=== PATIENT | male | born 1975 | race Caucasian/White ===

== ENCOUNTER 2018-08-12 19:18 | Emergency (ER) | payer BC, SELFPAY ==
--- NOTE | 2018-08-12 20:41 | RAD REPORT ---
EXAM DESCRIPTION: Norris Sarkar (2 Views)08/12/2018 8:31 pm CLINICAL HISTORY: Cough COMPARISON: September 2016 FINDINGS: The lungs appear clear of acute infiltrate. The heart is normal size IMPRESSION: No acute abnormalities displayed
[2018-08-12 21:06] LABS: Absolute Monocytes 1.1 K/uL (0.1-1.3); Basophils % 1.2 % (0-1.3); Eosinophils % 1.2 % (0-4.4); Hematocrit 41.5 % (39.6-49.0); Lymphocytes % 22.3 % (15.3-44.8); MPV 7.6 fL (7.6-11.3); Monocytes % 7.9 % (3.3-12.3); RBC Red Blood Cell Count 4.74 M/uL (4.33-5.43)
[2018-08-12 21:18] LABS: Potassium 3.7 mmol/L (3.5-5.1)
--- NOTE | 2018-08-12 21:45 | EDPHYS ---
Physician Documentation [facility] Name: Christiano Johns Age: 42 yrs Sex: Male : 1975 Arrival Date: 08/12/2018 Time: 19:19 Bed 7 Private MD: ED Physician Dennis Ochoa HPI: 08/12 20:42 This 42 yrs old Male presents to ER via Ambulatory with complaints of Cough, pkl Congestion, Back Pain. 20:42 The patient or guardian reports cough, with productive sputum, that is white. Onset: pkl The symptoms/episode began/occurred 1 week(s) ago. Associated signs and symptoms: Pertinent positives: chest pain, earache, rhinorrhea, upper back pain. Historical: - Allergies: 19:51 PENICILLINS; lp1 - Home Meds: 19:51 metformin 1,000 mg Oral tab 1 tab 2 times per day [Active]; lp1 - PMHx: 19:51 GALLSTONES; Gout; Sleep Apnea; Diabetes - NIDDM; lp1 - PSHx: 19:51 Cholecystectomy; lp1 - Immunization history:: Adult Immunizations up to date, Flu vaccine is not up to date. - Social history:: Smoking status: Patient uses tobacco products, smokes one pack cigarettes per day. - Ebola Screening: : No symptoms or risks identified at this time. ROS: 20:42 Eyes: Negative for injury, pain, redness, and discharge, ENT: Negative for injury, pkl pain, and discharge, Neck: Negative for injury, pain, and swelling, Cardiovascular: Negative for chest pain, palpitations, and edema. 20:42 Respiratory: Positive for cough, with white sputum. 20:42 Abdomen/GI: Negative for abdominal pain, nausea, vomiting, and diarrhea. 20:42 Back: Positive for pain at rest, of the upper back. 20:42 : Negative for urinary symptoms. 20:42 MS/extremity: Negative for acute changes. 20:42 Skin: Negative for rash. 20:42 Neuro: Negative for altered mental status. Exam: 20:42 Head/Face: Normocephalic, atraumatic. Eyes: Pupils equal round and reactive to light, pkl extra-ocular motions intact. Lids and lashes normal. Conjunctiva and sclera are non-icteric and not injected. Cornea within normal limits. Periorbital areas with no swelling, redness, or edema. ENT: Nares patent. No nasal discharge, no septal abnormalities noted. Tympanic membranes are normal and external auditory canals are clear. Oropharynx with no redness, swelling, or masses, exudates, or evidence of obstruction, uvula midline. Mucous membranes moist. Neck: Trachea midline, no thyromegaly or masses palpated, and no cervical lymphadenopathy. Supple, full range of motion without nuchal rigidity, or vertebral point tenderness. No Meningismus. Chest/axilla: Normal chest wall appearance and motion. Nontender with no deformity. No lesions are appreciated. Cardiovascular: Regular rate and rhythm with a normal S1 and S2. No gallops, murmurs, or rubs. Normal PMI, no JVD. No pulse deficits. Respiratory: Lungs have equal breath sounds bilaterally, clear to auscultation and percussion. No rales, rhonchi or wheezes noted. No increased work of breathing, no retractions or nasal flaring. Abdomen/GI: Soft, non-tender, with normal bowel sounds. No distension or tympany. No guarding or rebound. No evidence of tenderness throughout. Back: No spinal tenderness. No costovertebral tenderness. Full range of motion. Skin: Warm, dry with normal turgor. Normal color with no rashes, no lesions, and no evidence of cellulitis. MS/ Extremity: Pulses equal, no cyanosis. Neurovascular intact. Full, normal range of motion. Neuro: Awake and alert, GCS 15, oriented to person, place, time, and situation. Cranial nerves II-XII grossly intact. Motor strength 5/5 in all extremities. Sensory grossly intact. Cerebellar exam normal. Normal gait. Vital Signs: 19:49 BP 126 / 78; Pulse 96; Resp 18; Temp 99.8(O); Pulse Ox 98% on R/A; Weight 96.62 kg (R); lp1 Height 5 ft. 11 in. (180.34 cm); Pain 9/10; 21:43 BP 123 / 80; Pulse 87; Resp 18; Temp 98.4(O); Pulse Ox 96% on R/A; tl2 19:49 Body Mass Index 29.71 (96.62 kg, 180.34 cm) lp1 MDM: 20:35 Patient medically screened. pkl 21:43 Data reviewed: vital signs, nurses notes, lab test result(s), radiologic studies, plain pkl films. 08/12 19:51 Order name: Flu 1 08/12 19:52 Order name: Influenza Screen (A ; Complete Time: 20:36 EDNV 08/12 19:51 Order name: Chest Pa And Lat (2 Views) XRAY; Complete Time: 21:14 lp1 08/12 20:42 Order name: CBC with Diff; Complete Time: 21:14 pkl 08/12 20:42 Order name: Chem 7; Complete Time: 21:42 pkl Administered Medications: No medications were administered Disposition: 08/12/18 21:45 Discharged to Home. Impression: Bronchitis. Diabetes. Leukocytosis. - Condition is Stable. - Prescriptions for Zithromax Z- Karlos 250 mg Oral Tablet - take 1 tablet by ORAL route as directed for 5 days Day 1 - take two (2) tablets one time. Day 2, 3, 4 , 5 take one (1) tablet once daily.; 6 tablet. Guaifenesin AC 10- 100 mg/5 mL Oral Liquid - take 10 milliliters by ORAL route every 8 hours As needed; 120 milliliter. - Work release form, Medication Reconciliation Form, Thank You Letter, Antibiotic Education, Prescription Opioid Use form. - Follow up: Private Physician; When: 2 - 3 days; Reason: Re-evaluation by your physician. - Problem is new. - Symptoms are unchanged. Signatures: Dispatcher [employer] [facility] Dennis Ochoa MD MD pkl Alisa Beltran RN RN lp1 Autumn Porter RN RN tl2 Corrections: (The following items were deleted from the chart) 21:56 21:45 08/12/2018 21:45 Discharged to Home. Impression: Bronchitis. Diabetes. tl2 Leukocytosis. Condition is Stable. Forms are Medication Reconciliation Form, Thank You Letter, Antibiotic Education, Prescription Opioid Use. Follow up: Private Physician; When: 2 - 3 days; Reason: Re-evaluation by your physician. Problem is new. Symptoms are unchanged. pkl
--- NOTE | 2018-08-12 21:45 | ER ---
Nurse's Notes [facility] Name: Christiano Johns Age: 42 yrs Sex: Male : 1975 Arrival Date: 08/12/2018 Time: 19:19 Bed 7 Private MD: Diagnosis: Bronchitis. Diabetes. Leukocytosis Presentation: 08/12 19:47 Presenting complaint: Patient states: Been feeling sick for a few days with cough, lp1 congestion; States coughing is aggravating his herniated discs in his back; States have fever, chills at home, sore throat. Transition of care: patient was not received from another setting of care. Onset of symptoms was August 12, 2018. Risk Assessment: Do you want to hurt yourself or someone else? Patient reports no desire to harm self or others. Initial Sepsis Screen: Does the patient meet any 2 criteria? No. Patient's initial sepsis screen is negative. Does the patient have a suspected source of infection? No. Patient's initial sepsis screen is negative. Care prior to arrival: None. 19:47 Method Of Arrival: Ambulatory lp1 19:47 Acuity: TRAVIS 3 lp1 Triage Assessment: 21:00 General: Behavior is calm, cooperative, appropriate for age. tl2 Historical: - Allergies: 19:51 PENICILLINS; lp1 - Home Meds: 19:51 metformin 1,000 mg Oral tab 1 tab 2 times per day [Active]; lp1 - PMHx: 19:51 GALLSTONES; Gout; Sleep Apnea; Diabetes - NIDDM; lp1 - PSHx: 19:51 Cholecystectomy; lp1 - Immunization history:: Adult Immunizations up to date, Flu vaccine is not up to date. - Social history:: Smoking status: Patient uses tobacco products, smokes one pack cigarettes per day. - Ebola Screening: : No symptoms or risks identified at this time. Screenin:51 Abuse screen: Denies threats or abuse. Denies injuries from another. Nutritional lp1 screening: No deficits noted. Tuberculosis screening: No symptoms or risk factors identified. Fall Risk None identified. Assessment: 21:00 General: Appears in no apparent distress. uncomfortable. Pain: Complains of pain in tl2 back. Neuro: Level of Consciousness is awake, alert, obeys commands, Oriented to person, place, time, situation. Cardiovascular: Denies chest pain, Patient's skin is warm and dry. Respiratory: Reports cough that is Airway is patent Respiratory effort is even, unlabored, Respiratory pattern is regular, symmetrical, Breath sounds are clear bilaterally. GI: No signs and/or symptoms were reported involving the gastrointestinal system. : No signs and/or symptoms were reported regarding the genitourinary system. Derm: Skin is pink, warm \T\ dry. 21:45 Reassessment: Patient appears in no apparent distress at this time. Patient and/or tl2 family updated on plan of care and expected duration. Pain level reassessed. Patient is alert, oriented x 3, equal unlabored respirations, skin warm/dry/pink. 21:54 Reassessment: Patient appears in no apparent distress at this time. Patient and/or tl2 family updated on plan of care and expected duration. Pain level reassessed. Patient is alert, oriented x 3, equal unlabored respirations, skin warm/dry/pink. pt verbalized understanding of discharge instructions, need for follow up and prescription usage. Vital Signs: 19:49 BP 126 / 78; Pulse 96; Resp 18; Temp 99.8(O); Pulse Ox 98% on R/A; Weight 96.62 kg (R); lp1 Height 5 ft. 11 in. (180.34 cm); Pain 9/10; 21:43 BP 123 / 80; Pulse 87; Resp 18; Temp 98.4(O); Pulse Ox 96% on R/A; tl2 19:49 Body Mass Index 29.71 (96.62 kg, 180.34 cm) lp1 ED Course: 19:19 Patient arrived in ED. am2 19:49 Triage completed. lp1 19:49 Arm band placed on left wrist. lp1 19:55 Flu and/or RSV swab sent to lab. lp1 20:31 Chest Pa And Lat (2 Views) XRAY In Process Unspecified. EDMS 20:33 X-ray completed. Patient tolerated procedure well. Patient moved back from radiology. ml 20:35 Dennis Ochoa MD is Attending Physician. pkl 20:45 Autumn Porter RN is Primary Nurse. tl2 20:54 Inserted saline lock: 22 gauge in left wrist, using aseptic technique. Blood collected. tl2 21:45 Patient has correct armband on for positive identification. Bed in low position. Call tl2 light in reach. Side rails up X 1. Adult w/ patient. 21:54 No provider procedures requiring assistance completed. Patient did not have IV access tl2 during this emergency room visit. Administered Medications: No medications were administered Outcome: 21:45 Discharge ordered by . paramjit 21:54 Discharged to home ambulatory, with family. tl2 21:54 Condition: stable 21:54 Discharge instructions given to patient, Instructed on discharge instructions, follow up and referral plans. medication usage, Demonstrated understanding of instructions, follow-up care, medications, Prescriptions given X 2. 21:56 Patient left the ED. tl2 Signatures: Dispatcher [employer] EDMS Dennis Ochoa MD MD pkl Lopez, Melissa ml Pena, Laura, RN RN lp1 Autumn Porter RN RN tl2 Marcela Rivera am2 Corrections: (The following items were deleted from the chart) 19:49 19:47 Acuity: TRAVIS 4 lp1 lp1
== END 2018-08-12 21:56 | disposition home or self-care (01) ==
LOC: ER 19:18
DX: J40 Bronchitis, not specified as acute or chronic (principal); D72.829 Elevated white blood cell count, unspecified; Z88.0 Allergy status to penicillin; E11.9 Type 2 diabetes mellitus without complications; M10.9 Gout, unspecified; Z79.84 Long term (current) use of oral hypoglycemic drugs; F17.210 Nicotine dependence, cigarettes, uncomplicated
CPT/HCPCS: 36415; 71046; 80048; 85025; 87804; 99284

== ENCOUNTER 2019-02-22 15:03 | Emergency (ER) | payer SELFPAY ==
[2019-02-22] MEDS ORDERED: MORPHINE 4 MG/ML SYR ONE (17:16)
[2019-02-22] MEDS ORDERED: KETOROLAC 30 MG/ML INJ ONE (17:16)
[2019-02-22] MEDS ORDERED: ONDANSETRON 4 MG (ODT) TAB ONE (17:16)
--- NOTE | 2019-02-22 18:03 | EDPHYS ---
Physician Documentation [facility] Name: Christiano Johns Age: 43 yrs Sex: Male : 1975 Arrival Date: 02/22/2019 Time: 15:04 Bed 12 Private MD: None, None ED Physician Chris Snell HPI: 02/22 17:17 This 43 yrs old Male presents to ER via Ambulatory with complaints of Back jmm Pain. 17:17 The patient presents with pain that is acute. Onset: The symptoms/episode jmm began/occurred acutely, yesterday. The pain radiates to the left leg. Associated signs and symptoms: Pertinent negatives: abdominal pain, dysuria, fever, hematuria, incontinence, nausea, numbness, weakness. This is a 43 year old male with a history of DM, chronic back pain that presents to the ED with complaints of lower back pain which radiates down his left leg. This occurred while lifting at work yesterday. Denies bowel or bladder issues. Denies weakness. . Historical: - Allergies: 15:16 PENICILLINS; aj1 - Home Meds: 15:16 metformin 1,000 mg Oral tab 1 tab 2 times per day [Active]; aj1 - PMHx: 15:16 Diabetes - NIDDM; GALLSTONES; Gout; Sleep Apnea; aj1 - Immunization history:: Flu vaccine is not up to date. - Social history:: Smoking status: Patient uses tobacco products, smokes one pack cigarettes per day. - Ebola Screening: : Patient denies travel to an Ebola-affected area in the 21 days before illness onset. ROS: 17:17 Constitutional: Negative for fever, chills, and weight loss, Cardiovascular: Negative jmm for chest pain, palpitations, and edema, Respiratory: Negative for shortness of breath, cough, wheezing, and pleuritic chest pain. 17:17 Back: Positive for pain at rest. 17:17 MS/extremity: Positive for pain. 17:17 All other systems are negative. Exam: 17:17 Constitutional: This is a well developed, well nourished patient who is awake, alert, jmm and in no acute distress. Head/Face: atraumatic. Eyes: EOMI, no conjunctival erythema appreciated ENT: Moist Mucus Membranes Neck: Trachea midline, Supple Chest/axilla: Normal chest wall appearance and motion. Cardiovascular: Regular rate and rhythm. No edema appreciated Respiratory: Normal respirations, no respiratory distress appreciated Abdomen/GI: Non distended, soft 17:17 Back: left lumbar pain on palpation, FROM, painful. 17:17 Musculoskeletal/extremity: ROM: intact in all extremities. 17:17 Neuro: Orientation: is normal, Mentation: is normal, Memory: is normal, Gait: is steady, extensor hallucis longus intact. 17:17 Psych: Behavior/mood is pleasant, cooperative. Vital Signs: 15:16 BP 121 / 86; Pulse 87; Resp 16; Temp 97.9; Pulse Ox 98% on R/A; Weight 90.72 kg (R); aj1 Height 5 ft. 11 in. (180.34 cm) (R); Pain 8/10; 15:16 Body Mass Index 27.89 (90.72 kg, 180.34 cm) aj1 MDM: 16:44 Patient medically screened. [facility] 18:01 Data reviewed: vital signs, nurses notes. Counseling: I had a detailed discussion with james the patient and/or guardian regarding: the historical points, exam findings, and any diagnostic results supporting the discharge/admit diagnosis, the need for outpatient follow up, to return to the emergency department if symptoms worsen or persist or if there are any questions or concerns that arise at home. ED course: Patient is alert and non toxic in appearance in the ED. I do not suspect cord compression or cauda equina. Patient advised to follow up with pcp and otherwise given strict return precautions. patient understood and agrees with the plan of care. . Administered Medications: 17:21 Drug: Ketorolac 30 mg Route: IM; Site: left deltoid; hb 17:21 Drug: morphine 4 mg Route: IM; Site: right deltoid; hb 17:21 Drug: Zofran 4 mg Route: PO; hb Disposition: 18:34 Co-signature as Attending Physician, Chris Snell MD. rn Disposition: 02/22/19 18:02 Discharged to Home. Impression: Sciatica, left side. - Condition is Stable. - Discharge Instructions: Sciatica. - Prescriptions for Zanaflex 4 mg Oral Tablet - take 1 tablet by ORAL route every 8 hours As needed; 20 tablet. Medrol (Karlos) 4 mg Oral Tablets, Dose Pack - take 1 tablet by ORAL route as directed - follow package instructions; 1 packet. - Medication Reconciliation Form, Thank You Letter, Antibiotic Education, Prescription Opioid Use, School release form form. - Follow up: Private Physician; When: 2 - 3 days; Reason: Recheck today's complaints, Continuance of care, Re-evaluation by your physician. Signatures: Tisha Hughes RN RN aj1 Yordan Estrada PA PA jmm Nieto, Roman, MD MD rn Baxter, Heather, RN RN hb Corrections: (The following items were deleted from the chart) 18:19 18:02 02/22/2019 18:02 Discharged to Home. Impression: Sciatica, left side. Condition hb is Stable. Forms are Medication Reconciliation Form, Thank You Letter, Antibiotic Education, Prescription Opioid Use. Follow up: Private Physician; When: 2 - 3 days; Reason: Recheck today's complaints, Continuance of care, Re-evaluation by your physician. james
--- NOTE | 2019-02-22 18:03 | ER ---
Nurse's Notes [facility] Name: Christiano Johns Age: 43 yrs Sex: Male : 1975 Arrival Date: 02/22/2019 Time: 15:04 Bed 12 Private MD: None, None Diagnosis: Sciatica, left side Presentation: 02/22 15:15 Presenting complaint: Patient states: "I hurt my back yesterday at work and now if I aj1 move it sends pain down my legs" Reports that he had a big box of mushroom and he lifted it to put in the cooler and suddenly he had back pain. Transition of care: patient was not received from another setting of care. Onset of symptoms was February 21, 2019. Risk Assessment: Do you want to hurt yourself or someone else? Patient reports no desire to harm self or others. Initial Sepsis Screen: Does the patient meet any 2 criteria? No. Patient's initial sepsis screen is negative. Does the patient have a suspected source of infection? No. Patient's initial sepsis screen is negative. Care prior to arrival: None. 15:15 Method Of Arrival: Ambulatory aj 15:15 Acuity: TRAVIS 4 aj1 Triage Assessment: 15:16 General: Appears in no apparent distress. uncomfortable, Behavior is calm, cooperative, aj1 appropriate for age. Pain: Complains of pain in back Pain currently is 8 out of 10 on a pain scale. Neuro: Level of Consciousness is awake, alert, obeys commands. Cardiovascular: Patient's skin is warm and dry. Respiratory: Airway is patent Respiratory effort is even, unlabored, Respiratory pattern is regular, symmetrical. Musculoskeletal: Range of motion: intact in all extremities. Historical: - Allergies: 15:16 PENICILLINS; aj1 - Home Meds: 15:16 metformin 1,000 mg Oral tab 1 tab 2 times per day [Active]; aj1 - PMHx: 15:16 Diabetes - NIDDM; GALLSTONES; Gout; Sleep Apnea; aj1 - Immunization history:: Flu vaccine is not up to date. - Social history:: Smoking status: Patient uses tobacco products, smokes one pack cigarettes per day. - Ebola Screening: : Patient denies travel to an Ebola-affected area in the 21 days before illness onset. Screenin:48 Abuse screen: Denies threats or abuse. Denies injuries from another. Nutritional hb screening: No deficits noted. Tuberculosis screening: No symptoms or risk factors identified. Fall Risk None identified. Assessment: 16:49 General: Appears in no apparent distress. Behavior is calm, cooperative. Pain: Pain hb currently is 8 out of 10 on a pain scale. Neuro: Level of Consciousness is awake, alert, obeys commands, Oriented to person, place, time, situation. Cardiovascular: Capillary refill < 3 seconds Patient's skin is warm and dry. Respiratory: Airway is patent Respiratory effort is even, unlabored, Respiratory pattern is regular, symmetrical. GI: No signs and/or symptoms were reported involving the gastrointestinal system. : No signs and/or symptoms were reported regarding the genitourinary system. EENT: No signs and/or symptoms were reported regarding the EENT system. Derm: Skin is pink, warm \\T\\ dry. Musculoskeletal: Reports back pain. 17:45 Reassessment: Patient appears in no apparent distress at this time. Patient and/or hb family updated on plan of care and expected duration. Pain level reassessed. Patient is alert, oriented x 3, equal unlabored respirations, skin warm/dry/pink. Vital Signs: 15:16 BP 121 / 86; Pulse 87; Resp 16; Temp 97.9; Pulse Ox 98% on R/A; Weight 90.72 kg (R); aj1 Height 5 ft. 11 in. (180.34 cm) (R); Pain 8/10; 15:16 Body Mass Index 27.89 (90.72 kg, 180.34 cm) aj1 ED Course: 15:04 Patient arrived in ED. ag5 15:05 None, None is Private Physician. ag5 15:16 Triage completed. aj1 15:16 Arm band placed on Patient placed in waiting room, Patient notified of wait time. aj1 16:44 Yordan Estrada PA is PHCP. [facility] 16:44 Chris Snell MD is Attending Physician. [facility] 16:45 Cecilia Diaz, PATRICIO is Primary Nurse. hb 16:48 Patient has correct armband on for positive identification. Call light in reach. hb 17:45 No provider procedures requiring assistance completed. Patient did not have IV access hb during this emergency room visit. Administered Medications: 17:21 Drug: Ketorolac 30 mg Route: IM; Site: left deltoid; 17:21 Drug: morphine 4 mg Route: IM; Site: right deltoid; 17:21 Drug: Zofran 4 mg Route: PO; hb Outcome: 17:45 Discharged to home ambulatory, with family. hb 17:45 Condition: stable 17:45 Discharge instructions given to patient, family, Instructed on discharge instructions, follow up and referral plans. medication usage, Demonstrated understanding of instructions, follow-up care, medications, Prescriptions given X 2. 18:02 Discharge ordered by . james 18:19 Patient left the ED. Signatures: Tisha Hughes, RN RN aj1 Yordan Estrada PA PA jmm Baxter, Heather, RN RN hb Gaskin, Ajare ag5
== END 2019-02-22 18:19 | disposition home or self-care (01) ==
LOC: ER 15:03
DX: M54.32 Sciatica, left side (principal); Z88.0 Allergy status to penicillin; E11.9 Type 2 diabetes mellitus without complications; F17.210 Nicotine dependence, cigarettes, uncomplicated
CPT/HCPCS: 96372; 99283

== ENCOUNTER 2020-02-09 16:52 | Emergency (ER) | payer SELFPAY ==
[2020-02-09] MEDS ORDERED: IBUPROFEN 400 MG TAB ONE ×2 (18:59→19:00)
[2020-02-09] MEDS ORDERED: HYDROCODONE/APAP 7.5/325 MG TAB ONE (18:59)
--- NOTE | 2020-02-09 19:20 | RAD REPORT ---
EXAM DESCRIPTION: RAD - Scapula Left - 02/09/2020 7:04 pm CLINICAL HISTORY: fall;Pain COMPARISON: Shoulder Left 2 View dated 02/09/2020 FINDINGS: No fracture or dislocation is identified.
--- NOTE | 2020-02-09 19:20 | RAD REPORT ---
EXAM DESCRIPTION: RAD - Shoulder Left 2 View - 02/09/2020 7:05 pm CLINICAL HISTORY: PAIN Fall, left shoulder pain COMPARISON: Shoulder Left 2 View dated 01/30/2016; Scapula Left dated 02/09/2020 FINDINGS: Mild AC joint and glenohumeral joint arthritic changes are present. No acute fracture or d islocation identified.
--- NOTE | 2020-02-09 19:34 | EDPHYS ---
Physician Documentation [facility] Name: Christiano Johns Age: 44 yrs Sex: Male : 1975 Arrival Date: 02/09/2020 Time: 16:53 Bed 23 Private MD: ED Physician Chris Snell HPI: 02/08 18:35 This 44 yrs old Male presents to ER via Ambulatory with complaints of Fall cp Injury, Shoulder Pain. 18:35 Details of fall: The patient fell from an upright position, while walking. Onset: The cp symptoms/episode began/occurred today. Associated injuries: The patient sustained left shoulder. Historical: - Allergies: 17:53 PENICILLINS; em - PMHx: 17:53 Diabetes - NIDDM; Gout; GALLSTONES; Sleep Apnea; em - PSHx: 17:53 Cholecystectomy; em - Immunization history:: Adult Immunizations up to date. - Social history:: Smoking status: Patient reports the use of cigarette tobacco products, smokes one pack cigarettes per day. ROS: 18:40 MS/extremity: Positive for decreased range of motion, pain, tenderness, of the left cp shoulder, Negative for paresthesias. 18:40 Constitutional: Negative for body aches, chills, fever. cp 18:40 Neck: Negative for pain with movement, pain at rest, stiffness. 18:40 Cardiovascular: Negative for chest pain. 18:40 Respiratory: Negative for cough, shortness of breath, wheezing. 18:40 Abdomen/GI: Negative for abdominal pain, nausea, vomiting, and diarrhea. 18:40 Back: Negative for pain at rest, pain with movement, radiated pain. 18:40 Neuro: Negative for headache, loss of consciousness, syncope, weakness. 18:40 All other systems are negative. Exam: 18:45 Constitutional: The patient appears in no acute distress, alert, awake, well developed, cp well nourished, uncomfortable. 18:45 Head/Face: Normocephalic, atraumatic. cp 18:45 Eyes: Periorbital structures: appear normal, Pupils: equal, round, and reactive to cp light and accomodation, Extraocular movements: intact throughout, Sclera: no appreciated abnormality, Lids and lashes: appear normal, bilaterally. 18:45 ENT: External ear(s): are unremarkable, Nose: is normal, Mouth: Lips: moist, Oral mucosa: moist, Posterior pharynx: Airway: no evidence of obstruction, patent. 18:45 Neck: C-spine: vertebral tenderness, is not appreciated, crepitus, is not appreciated, ROM/movement: is normal, is supple, without pain, no range of motions limitations. 18:45 Chest/axilla: Inspection: normal, Palpation: is normal, no crepitus, no tenderness. 18:45 Cardiovascular: Rate: normal, Rhythm: regular, Pulses: Pulses are 2+ in right radial artery and left radial artery. Edema: is not appreciated. 18:45 Respiratory: the patient does not display signs of respiratory distress, Respirations: normal, no use of accessory muscles, no retractions, labored breathing, is not present, Breath sounds: are clear throughout, no decreased breath sounds. 18:45 Abdomen/GI: Inspection: abdomen appears normal, Palpation: abdomen is soft and non-tender, in all quadrants. 18:45 Back: vertebral tenderness, is not appreciated. 18:45 Musculoskeletal/extremity: ROM: limited passive range of motion due to pain, in the left shoulder, Perfusion: the extremity is normally perfused throughout, Sensation intact. Joints: All joints are normal except the left shoulder displays limited range of motion, painful range of motion, tenderness. 18:45 Neuro: Orientation: to person, place \T\ time. Mentation: is normal. cp Vital Signs: 17:50 BP 146 / 99; Pulse 99; Resp 18; Temp 98.4; Pulse Ox 99% on R/A; Weight 86.18 kg; Height em 5 ft. 11 in. (180.34 cm); Pain 5/10; 17:50 Body Mass Index 26.50 (86.18 kg, 180.34 cm) em Procedures: 20:00 Splinting: Splint applied to left shoulder using sling, applied by tech. Examined by cp me, post splint application: neurovascular intact, Patient tolerated well. MDM: 18:30 Patient medically screened. cp 18:45 Differential diagnosis: contusion, fracture, AC joint separation, dislocation. cp 19:33 Data reviewed: vital signs, nurses notes, radiologic studies, plain films, and as a cp result, I will discharge patient. 19:33 Counseling: I had a detailed discussion with the patient and/or guardian regarding: the cp historical points, exam findings, and any diagnostic results supporting the discharge/admit diagnosis, radiology results, the need for outpatient follow up, a orthopedic surgeon, to return to the emergency department if symptoms worsen or persist or if there are any questions or concerns that arise at home. Response to treatment: Pain improved. Will discharge to home for continued monitoring. 02/08 18:21 Order name: Shoulder Left (2 View) XRAY; Complete Time: 19:24 em 02/08 19:24 Interpretation: Report reviewed. cp 02/08 18:41 Order name: XRAY Scapula LEFT; Complete Time: 19:24 cp 02/08 19:24 Interpretation: Report reviewed. cp 02/08 19:35 Order name: Sling; Complete Time: 19:44 cp Administered Medications: 18:50 Drug: Hydrocodone-Acetaminophen (7.5 mg-325 mg) 1 tabs Route: PO; hb 19:20 Follow up: Response: No adverse reaction; Pain is decreased sg 18:50 Drug: Ibuprofen 800 mg Route: PO; hb 19:40 Follow up: Response: No adverse reaction sg Disposition: 20:00 Chart complete. cp Disposition: 02/09/20 19:34 Discharged to Home. Impression: Pain in left shoulder, Fall on same level from slipping, tripping and stumbling. - Condition is Stable. - Discharge Instructions: Shoulder Pain, Shoulder Range of Motion Exercises. - Prescriptions for Naprosyn 500 mg Oral Tablet - take 1 tablet by ORAL route 2 times per day take with food; 20 tablet. Cyclobenzaprine 10 mg Oral Tablet - take 1 tablet by ORAL route every 8 hours As needed; 20 tablet. Tramadol 50 mg Oral Tablet - take 1 tablet by ORAL route every 8 hours as needed; 12 tablet. - Work release form, Medication Reconciliation Form, Thank You Letter, Antibiotic Education, Prescription Opioid Use form. - Follow up: Anatoly Pappas MD; When: 2 - 3 days; Reason: Recheck today's complaints. - Problem is new. - Symptoms have improved. Addendum: 02/11/2020 07:17 Co-signature as Attending Physician, Chris Snell MD. r n Signatures: Dispatcher [employer] Anatoly Mckeon RN RN sg Munoz, Edgar, RN RN em Nieto, Roman, MD MD rn Page, Corey, PA PA cp Baxter, Heather, RN RN Corrections: (The following items were deleted from the chart) 02/08 19:58 19:34 02/09/2020 19:34 Discharged to Home. Impression: Pain in left shoulder; Fall on sg same level from slipping, tripping and stumbling. Condition is Stable. Forms are Medication Reconciliation Form, Thank You Letter, Antibiotic Education, Prescription Opioid Use. Follow up: Anatoly Pappas; When: 2 - 3 days; Reason: Recheck today's complaints. Problem is new. Symptoms have improved. cp
--- NOTE | 2020-02-09 19:34 | ER ---
Nurse's Notes [facility] Name: Christiano Johns Age: 44 yrs Sex: Male : 1975 Arrival Date: 02/09/2020 Time: 16:53 Bed 23 Private MD: Diagnosis: Pain in left shoulder;Fall on same level from slipping, tripping and stumbling Presentation: 02/08 17:50 Chief complaint: Patient states: slipped on mud and fell and tried to avoid getting em face to get hit and put arm up and heard a pop on the left shoulder bladde. Coronavirus screen: Client denies travel out of the [place] in the last 14 days. Ebola Screen: Patient negative for fever greater than or equal to 101.5 degrees Fahrenheit, and additional compatible Ebola Virus Disease symptoms Patient denies exposure to infectious person. Patient denies travel to an Ebola-affected area in the 21 days before illness onset. No symptoms or risks identified at this time. Initial Sepsis Screen: Does the patient meet any 2 criteria? No. Patient's initial sepsis screen is negative. Does the patient have a suspected source of infection? No. Patient's initial sepsis screen is negative. Risk Assessment: Do you want to hurt yourself or someone else? Patient reports no desire to harm self or others. Onset of symptoms was 2020. 17:50 Method Of Arrival: Ambulatory em 17:50 Acuity: TRAVIS 4 em Historical: - Allergies: 17:53 PENICILLINS; em - PMHx: 17:53 Diabetes - NIDDM; Gout; GALLSTONES; Sleep Apnea; em - PSHx: 17:53 Cholecystectomy; em - Immunization history:: Adult Immunizations up to date. - Social history:: Smoking status: Patient reports the use of cigarette tobacco products, smokes one pack cigarettes per day. Screenin:32 Abuse screen: Denies threats or abuse. Denies injuries from another. Nutritional hb screening: No deficits noted. Tuberculosis screening: No symptoms or risk factors identified. Fall Risk None identified. Assessment: 18:30 General: Appears in no apparent distress. uncomfortable, Behavior is calm, cooperative. hb Pain: Pain currently is 5 out of 10 on a pain scale. Neuro: Level of Consciousness is awake, alert, obeys commands, Oriented to person, place, time, situation. Cardiovascular: Capillary refill < 3 seconds Patient's skin is warm and dry. Respiratory: Respiratory effort is even, unlabored, Respiratory pattern is regular, symmetrical. GI: No signs and/or symptoms were reported involving the gastrointestinal system. : No signs and/or symptoms were reported regarding the genitourinary system. EENT: No signs and/or symptoms were reported regarding the EENT system. Derm: Skin is pink, warm \T\ dry. Musculoskeletal: Reports left shoulder and left upper back pain 02/26. 18:52 Reassessment: Pt to radiology via wheelchair. hb Vital Signs: 17:50 BP 146 / 99; Pulse 99; Resp 18; Temp 98.4; Pulse Ox 99% on R/A; Weight 86.18 kg; Height em 5 ft. 11 in. (180.34 cm); Pain 5/10; 17:50 Body Mass Index 26.50 (86.18 kg, 180.34 cm) em ED Course: 16:53 Patient arrived in ED. ag5 17:52 Triage completed. em 18:28 Carlos Lucio PA is PHCP. cp 18:28 Chris Snell MD is Attending Physician. cp 18:32 Patient has correct armband on for positive identification. Bed in low position. Call hb light in reach. 18:50 Cecilia Diaz RN is Primary Nurse. hb 18:56 Primary Nurse role handed off by Cecilia Diaz RN sg 18:56 Anatoly De Leon RN is Primary Nurse. sg 19:04 Shoulder Left (2 View) XRAY In Process Unspecified. EDMS 19:04 XRAY Scapula LEFT In Process Unspecified. EDMS 19:33 Anatoly Pappas MD is Referral Physician. cp Administered Medications: 18:50 Drug: Hydrocodone-Acetaminophen (7.5 mg-325 mg) 1 tabs Route: PO; hb 19:20 Follow up: Response: No adverse reaction; Pain is decreased sg 18:50 Drug: Ibuprofen 800 mg Route: PO; hb 19:40 Follow up: Response: No adverse reaction sg Outcome: 19:34 Discharge ordered by . cp 19:58 Patient left the ED. sg Signatures: Dispatcher [employer] EDMS Anatoly De Leon RN RN Denis Euceda RN RN Carlos Lucio PA PA cp Cecilia Diaz RN RN Mauricio, Art ag5
[2020-02-09 20:03] VITALS: BP 146/99; TEMP 98.4; O2SAT 99
== END 2020-02-09 19:58 | disposition home or self-care (01) ==
LOC: ER 16:52
DX: M25.512 Pain in left shoulder (principal); W01.0XXA Fall on same level from slipping, tripping and stumbling without subsequent striking against object, initial encounter; Y93.01 Activity, walking, marching and hiking; Y92.9 Unspecified place or not applicable; Z88.0 Allergy status to penicillin; F17.210 Nicotine dependence, cigarettes, uncomplicated
CPT/HCPCS: 73010; 99283

== ENCOUNTER 2020-08-31 11:31 | Emergency (ER) | payer SELFPAY ==
--- NOTE | 2020-08-31 14:36 | RAD REPORT ---
EXAM DESCRIPTION: [place] Single View08/31/2020 2:28 pm CLINICAL HISTORY: Shortness of breath COMPARISON: 2019 FINDINGS: The lungs appear clear of acute infiltrate. The heart is normal size IMPRESSION: No acute abnormalities displayed
[2020-08-31 14:42] LABS: SARS-COV-2 RT PCR NEGATIVE (NEGATIVE)
--- NOTE | 2020-08-31 15:25 | ER ---
Nurse's Notes [facility] Name: Christiano Johns Age: 44 yrs Sex: Male : 1975 Arrival Date: 08/31/2020 Time: 11:39 Bed 24 Private MD: Diagnosis: Acute upper respiratory infection, unspecified Presentation: 08/31 12:02 Chief complaint: Patient states: SOB, cough, RIVERA, abd pain, body aches since Saturday. ll1 Exposed to covid positive co worker. Coronavirus screen: Client denies travel out of the [place] in the last 14 days. chills, congestion, cough unrelated to allergies, diarrhea, difficulty breathing, fatigue, headache, muscle pain, nausea, runny nose, shaking with chills, shortness of breath, sore throat, Client presents with at least one sign or symptom that may indicate coronavirus-19. Standard/surgical mask placed on the client. Ebola Screen: Patient denies travel to an Ebola-affected area in the 21 days before illness onset. Initial Sepsis Screen: Does the patient meet any 2 criteria? No. Patient's initial sepsis screen is negative. Does the patient have a suspected source of infection? Yes: Productive cough/pneumonia. Risk Assessment: Do you want to hurt yourself or someone else? Patient reports no desire to harm self or others. Onset of symptoms was August 30, 2020. 12:02 Method Of Arrival: Ambulatory [facility] 12:02 Acuity: TRAVIS 3 ll1 Historical: - Allergies: 12:06 PENICILLINS; ll1 - Home Meds: 13:24 metformin 1,000 mg Oral tab 1 tab 2 times per day [Active]; jl7 - PMHx: 12:06 Diabetes - NIDDM; GALLSTONES; Gout; Sleep Apnea; ll1 - PSHx: 12:06 Cholecystectomy; ll1 - Immunization history:: Client reports having NOT received the Covid vaccine. Flu vaccine is not up to date. - Social history:: Smoking status: Patient reports the use of cigarette tobacco products, smokes one-half pack cigarettes per day. Screenin:44 Abuse screen: Denies threats or abuse. Denies injuries from another. Nutritional jl7 screening: No deficits noted. Tuberculosis screening: No symptoms or risk factors identified. Fall Risk None identified. Assessment: 12:44 General: Appears in no apparent distress. uncomfortable, Behavior is calm, cooperative, jl7 appropriate for age. Pain: Complains of pain in xyphoid area Pain does not radiate. Pain currently is 8 out of 10 on a pain scale. Quality of pain is described as crampy, Pain began 2-3 days ago. Is intermittent. Neuro: Level of Consciousness is awake, alert, obeys commands, Oriented to person, place, time, situation. Cardiovascular: Patient's skin is warm and dry. Rhythm is regular. Respiratory: Airway is patent Respiratory effort is even, unlabored, Respiratory pattern is regular, symmetrical. GI: Reports diarrhea, nausea, vomiting, since x 2 days. Derm: Skin is pink, warm \T\ dry. 13:39 Reassessment: Patient appears in no apparent distress at this time. No changes from jl7 previously documented assessment. Patient and/or family updated on plan of care and expected duration. Pain level reassessed. Patient is alert, oriented x 3, equal unlabored respirations, skin warm/dry/pink. Awaiting lab results. Vital Signs: 12:02 BP 151 / 104; Pulse 71; Resp 17; Temp 98.0; Pulse Ox 100% ; Weight 99.79 kg; Height 5 ll1 ft. 11 in. (180.34 cm); Pain 9/10; 12:44 BP 154 / 104; Pulse 85; Resp 19; Pulse Ox 100% ; Pain 8/10; jl7 13:49 BP 144 / 103; Pulse 86; Resp 18; Pulse Ox 99% on R/A; mh5 12:02 Body Mass Index 30.68 (99.79 kg, 180.34 cm) ll1 ED Course: 11:39 Patient arrived in ED. mr 12:02 Arm band placed on. ll1 12:05 Triage completed. ll1 12:23 Asiya Norman FNP-C is [facility]. kb 12:23 David Jurado MD is Attending Physician. kb 12:38 Evelia Zhang RN is Primary Nurse. jl7 12:44 Patient has correct armband on for positive identification. Bed in low position. Call [facility] light in reach. Side rails up X 1. Pulse ox on. NIBP on. 12:44 COVID swab sent to lab. jl7 13:19 EKG done, by ED staff, reviewed by Asiya FORTUNE. jl7 15:41 No provider procedures requiring assistance completed. Patient did not have IV access ss during this emergency room visit. Administered Medications: No medications were administered Outcome: 15:24 Discharge ordered by . kb 15:41 Discharged to home ambulatory. ss 15:41 Condition: good 15:41 Discharge instructions given to patient, Instructed on discharge instructions, follow up and referral plans. Demonstrated understanding of instructions, follow-up care. 15:42 Patient left the ED. ss Signatures: Asiya Norman, DEVIKA ASSISTANT CHIEF NURSING OFFICER-Ckarron Aguilar Candice mr Maryse Thomason, RN RN ss Claire Hopper Jahala, RN RN jl7 Leela Whitfield RN RN ll1
--- NOTE | 2020-08-31 15:25 | EDPHYS ---
Physician Documentation [facility] Name: Christiano Johns Age: 44 yrs Sex: Male : 1975 Arrival Date: 08/31/2020 Time: 11:39 Bed 24 Private MD: ED Physician David Jurado HPI: 08/31 15:42 This 44 yrs old Male presents to ER via Ambulatory with complaints of kb Abdominal Pain, Breathing Difficulty, Headache. 15:42 The patient or guardian reports cough, that is intermittent, described as moderate, kb difficulty breathing, flu symptoms, myalgias. Onset: The symptoms/episode began/occurred 5 day(s) ago. Severity of symptoms: At their worst the symptoms were moderate, in the emergency department the symptoms are unchanged. Modifying factors: The symptoms are alleviated by nothing, the symptoms are aggravated by nothing. Associated signs and symptoms: Pertinent positives: chest pain, Pertinent negatives: diarrhea, ear ache, fever, nausea, rhinorrhea, sore throat, vomiting. The patient has not experienced similar symptoms in the past. The patient has not recently seen a physician. 16:29 Shortness of breath, cough, headache, bodyaches, fatigue, chest pain with deep breath kb that started 5 days ago. Was notified that a few of his coworkers tested positive for covid. Historical: - Allergies: 12:06 PENICILLINS; ll1 - Home Meds: 13:24 metformin 1,000 mg Oral tab 1 tab 2 times per day [Active]; jl7 - PMHx: 12:06 Diabetes - NIDDM; GALLSTONES; Gout; Sleep Apnea; ll1 - PSHx: 12:06 Cholecystectomy; ll1 - Immunization history:: Client reports having NOT received the Covid vaccine. Flu vaccine is not up to date. - Social history:: Smoking status: Patient reports the use of cigarette tobacco products, smokes one-half pack cigarettes per day. ROS: 15:41 Abdomen/GI: Negative for abdominal pain, nausea, vomiting, diarrhea, and constipation, kb MS/Extremity: Negative for injury and deformity, Skin: Negative for injury, rash, and discoloration. 15:41 Constitutional: Positive for body aches, fatigue, malaise, poor PO intake. 15:41 Cardiovascular: Positive for chest pain, with cough. 15:41 Respiratory: Positive for cough, shortness of breath. 15:41 Neuro: Positive for headache. Exam: 15:41 Constitutional: This is a well developed, well nourished patient who is awake, alert, kb and in no acute distress. Head/Face: Normocephalic, atraumatic. Cardiovascular: Regular rate and rhythm with a normal S1 and S2. No gallops, murmurs, or rubs. No pulse deficits. Respiratory: Respirations even and unlabored. No increased work of breathing, no retractions or nasal flaring. Abdomen/GI: Soft, non-tender. No distention Skin: Warm, dry with normal turgor. Normal color. MS/ Extremity: Pulses equal, no cyanosis. Neurovascular intact. Full, normal range of motion. Neuro: Awake and alert, GCS 15, oriented to person, place, time, and situation. Moves all extremities. Normal gait. 18:05 ECG was reviewed by the Attending Physician. Vital Signs: 12:02 BP 151 / 104; Pulse 71; Resp 17; Temp 98.0; Pulse Ox 100% ; Weight 99.79 kg; Height 5 ll1 ft. 11 in. (180.34 cm); Pain 9/10; 12:44 BP 154 / 104; Pulse 85; Resp 19; Pulse Ox 100% ; Pain 8/10; jl7 13:49 BP 144 / 103; Pulse 86; Resp 18; Pulse Ox 99% on R/A; mh5 12:02 Body Mass Index 30.68 (99.79 kg, 180.34 cm) ll1 MDM: 12:41 Patient medically screened. kb 15:32 Data reviewed: vital signs, nurses notes. Data interpreted: Pulse oximetry: on room air kb is 99 %. Interpretation: normal. Counseling: I had a detailed discussion with the patient and/or guardian regarding: the historical points, exam findings, and any diagnostic results supporting the discharge/admit diagnosis, lab results, radiology results, the need for outpatient follow up, a family practitioner, to return to the emergency department if symptoms worsen or persist or if there are any questions or concerns that arise at home. 08/31 12:57 Order name: Chest Single View XRAY kb 08/31 12:57 Order name: EKG; Complete Time: 12:57 kb 08/31 14:36 Order name: RAD; Complete Time: 14:44 EDMS 08/31 14:43 Order name: COVID-19/FLU A+B; Complete Time: 14:44 EDWV 08/31 12:57 Order name: EKG - Nurse/Tech; Complete Time: 13:19 kb EC:05 Rate is 66 beats/min. Rhythm is regular. QRS [place] is Normal. OK interval is normal at kb 136 msec. QRS interval is normal at 94 msec. QT interval is normal at 390 msec. Administered Medications: No medications were administered Disposition: 09/01 07:22 Co-signature as Attending Physician, David Jurado MD I agree with the assessment and kdr plan of care. Disposition: 08/31/20 15:24 Discharged to Home. Impression: Acute upper respiratory infection, unspecified. - Condition is Stable. - Discharge Instructions: Upper Respiratory Infection, Adult, [id number], Viral Respiratory Infection, [id number], COVID-19. - Medication Reconciliation Form, Thank You Letter, Antibiotic Education, Prescription Opioid Use form. - Follow up: Emergency Department; When: As needed; Reason: Worsening of condition. Follow up: Private Physician; When: 2 - 3 days; Reason: Recheck today's complaints, Continuance of care, Re-evaluation by your physician. Signatures: Dispatcher [employer] EDWV Asiya Norman, TUBE COVERER-C TUBE COVERER-Ckb David Jurado MD MD [facility] Maryse Thomason, RN RN ss Evelia Zhang RN RN jl7 Leela Whitfield, RN RN ll1 Corrections: (The following items were deleted from the chart) 08/31 13:48 12:26 Influenza Screen (A \T\ B)+BA.LAB.BRZ ordered. [facility] 13:48 12:26 CORONAVIRUS+MR.LAB.BRZ ordered. [facility] EDWV 15:42 15:24 08/31/2020 15:24 Discharged to Home. Impression: Acute upper respiratory ss infection, unspecified. Condition is Stable. Forms are Medication Reconciliation Form, Thank You Letter, Antibiotic Education, Prescription Opioid Use. Follow up: Emergency Department; When: As needed; Reason: Worsening of condition. Follow up: Private Physician; When: 2 - 3 days; Reason: Recheck today's complaints, Continuance of care, Re-evaluation by your physician. kb 16:30 16:29 The patient has shortness of breath at rest, kb kb
[2020-08-31 15:49] VITALS: TEMP 98
[2020-08-31 15:51] VITALS: BP 144/103; O2SAT 99
--- NOTE | 2020-09-01 07:36 | EKG ---
Test Date: 2020-08-31 Test Time: 13:14:12 Driver Service Technician: ABILIO MEASUREMENT RESULTS: Intervals: Rate: 66 [place]: 136 QRSD: 94 QT: 390 QTc: 408 [place]: P: 69 OH: 136 QRS: 31 T: 48 INTERPRETIVE STATEMENTS: Normal sinus rhythm Normal ECG Compared to ECG 09/17/2016 19:28:20 No significant changes Electronically Signed On 09-01-20 07:34:40 CDT by Jone Edwards
== END 2020-08-31 15:42 | disposition home or self-care (01) ==
LOC: ER 11:31
DX: J06.9 Acute upper respiratory infection, unspecified (principal); Z20.822 Contact with and (suspected) exposure to COVID-19; E11.9 Type 2 diabetes mellitus without complications; F17.210 Nicotine dependence, cigarettes, uncomplicated; Z88.0 Allergy status to penicillin
CPT/HCPCS: 0240U; 71045; 93005; 99283

== ENCOUNTER 2020-12-16 07:42 | Emergency (ER) | payer SELFPAY ==
[2020-12-16] MEDS ORDERED: dexAMETHasone 10 MG/ML VIAL ONE (08:30)
[2020-12-16] MEDS ORDERED: ASPIRIN 81 MG CHEWABLE TABLET ONE (08:30)
[2020-12-16] MEDS ORDERED: FAMOTIDINE 20 MG/2 ML VIAL IV ONE (08:31)
[2020-12-16] MEDS ORDERED: NA CHLORIDE 0.9% 250 ML ONE (08:31)
[2020-12-16] MEDS ORDERED: AZITHROMYCIN 500 MG INJ IVPB ONE (08:31)
[2020-12-16] MEDS ORDERED: NA CHLORIDE 0.9% 1,000 ML ONE (08:31)
[2020-12-16 08:33] LABS: Hematocrit 45.1 % (39.6-49.0); RBC Red Blood Cell Count 5.19 M/uL (4.33-5.43)
[2020-12-16 08:34] LABS: Absolute Lymphocytes (CBC) 3.4 K/uL (0.7-4.9); Lymphocytes % 25.2 % (15.3-44.8); MPV 7.2 fL (7.6-11.3)
[2020-12-16 08:49] LABS: ALT/SGPT 42 U/L (12-78); AST/SGOT 20 U/L (15-37); Albumin 4.1 g/dL (3.4-5.0); Alkaline Phosphatase 64 U/L (45-117); BUN Blood Urea Nitrogen 11 mg/dL (7-18); Bicarbonate 28 mmol/L (21-32); Bilirubin Total 0.4 mg/dL (0.2-1.0); Glucose Level 108 mg/dL (74-106); Potassium 4.3 mmol/L (3.5-5.1); Protein, Total 8.3 g/dL (6.4-8.2); Sodium Level 138 mmol/L (136-145); Troponin (Emerg Dept Use Only) < 0.02 ng/mL (0.0-0.045)
--- NOTE | 2020-12-16 09:41 | EDPHYS ---
Physician Documentation [facility] Name: Christiano Johns Age: 45 yrs Sex: Male : 1975 Arrival Date: 12/16/2020 Time: 07:45 Bed 12 Private MD: AZAM Physician Carlos Storm HPI: 12/16 08:09 This 45 yrs old Male presents to ER via Ambulatory with complaints of latisha Vomiting/Diarrhea, Cough, Congestion. 08:09 The patient presents to the emergency department with nausea, diarrhea, that is latisha continuous. Onset: The symptoms/episode began/occurred 3 day(s) ago. Possible causes: unknown. The symptoms are aggravated by nothing. The symptoms are alleviated by nothing. Associated signs and symptoms: Pertinent positives: abdominal pain, diarrhea, nausea. Severity of symptoms: At their worst the symptoms were mild moderate today, in the emergency department the symptoms are unchanged. The patient has not experienced similar symptoms in the past. Historical: - Allergies: 07:50 PENICILLINS; tw2 - Home Meds: 07:50 None [Active]; tw2 - PMHx: 07:50 Gout; GALLSTONES; Diabetes - NIDDM; Sleep Apnea; tw2 - Immunization history:: Client reports having NOT received the Covid vaccine. - Social history:: Smoking status: Patient reports the use of cigarette tobacco products, smokes one pack cigarettes per day. ROS: 08:12 Constitutional: Negative for fever, chills, and weight loss, Eyes: Negative for injury, latisha pain, redness, and discharge, ENT: Negative for injury, pain, and discharge, Neck: Negative for injury, pain, and swelling, Cardiovascular: Negative for chest pain, palpitations, and edema, Back: Negative for injury and pain, : Negative for injury, bleeding, discharge, and swelling, MS/Extremity: Negative for injury and deformity, Skin: Negative for injury, rash, and discoloration, Neuro: Negative for headache, weakness, numbness, tingling, and seizure, Psych: Negative for depression, anxiety, suicide ideation, homicidal ideation, and hallucinations, Allergy/Immunology: Negative for hives, rash, and allergies, Endocrine: Negative for neck swelling, polydipsia, polyuria, polyphagia, and marked weight changes, Hematologic/Lymphatic: Negative for swollen nodes, abnormal bleeding, and unusual bruising. 08:12 Respiratory: Positive for cough, with no reported sputum. 08:12 Abdomen/GI: Positive for diarrhea. Exam: 08:12 Constitutional: This is a well developed, well nourished patient who is awake, alert, latisha and in no acute distress. Head/Face: Normocephalic, atraumatic. Eyes: Pupils equal round and reactive to light, extra-ocular motions intact. Lids and lashes normal. Conjunctiva and sclera are non-icteric and not injected. Cornea within normal limits. Periorbital areas with no swelling, redness, or edema. ENT: Nares patent. No nasal discharge, no septal abnormalities noted. Tympanic membranes are normal and external auditory canals are clear. Oropharynx with no redness, swelling, or masses, exudates, or evidence of obstruction, uvula midline. Mucous membranes moist. Neck: Trachea midline, no thyromegaly or masses palpated, and no cervical lymphadenopathy. Supple, full range of motion without nuchal rigidity, or vertebral point tenderness. No Meningismus. Chest/axilla: Normal chest wall appearance and motion. Nontender with no deformity. No lesions are appreciated. Cardiovascular: Regular rate and rhythm with a normal S1 and S2. No gallops, murmurs, or rubs. Normal PMI, no JVD. No pulse deficits. Back: No spinal tenderness. No costovertebral tenderness. Full range of motion. Male : Normal genitalia with no discharge or lesions. Skin: Warm, dry with normal turgor. Normal color with no rashes, no lesions, and no evidence of cellulitis. MS/ Extremity: Pulses equal, no cyanosis. Neurovascular intact. Full, normal range of motion. Neuro: Awake and alert, GCS 15, oriented to person, place, time, and situation. Cranial nerves II-XII grossly intact. Motor strength 5/5 in all extremities. Sensory grossly intact. Cerebellar exam normal. Normal gait. Psych: Awake, alert, with orientation to person, place and time. Behavior, mood, and affect are within normal limits. 08:12 Respiratory: the patient does not display signs of respiratory distress, Respirations: normal, Breath sounds: rhonchi, that are mild, are scattered. 08:12 Abdomen/GI: Inspection: abdomen appears normal, Bowel sounds: normal, Palpation: mild abdominal tenderness, in the right upper quadrant, left upper quadrant, right lower quadrant and left lower quadrant, Liver: no appreciated palpable abnormalities, Hernia: not appreciated. 08:31 ECG was reviewed by the Attending Physician. latisha 09:40 Musculoskeletal/extremity: DVT Exam: No signs of deep vein thrombosis. no pain, no latisha swelling, no tenderness, negative Homans' sign noted on exam, no appreciated bluish discoloration, no erythema, no increased warmth. Vital Signs: 07:48 BP 137 / 95; Pulse 96; Resp 19; Temp 98.1(TE); Pulse Ox 97% on R/A; Weight 95.25 kg tw2 (R); Height 5 ft. 11 in. (180.34 cm) (R); 08:45 BP 125 / 82; Pulse 79; Resp 16; Pulse Ox 99% on R/A; sv 07:48 Body Mass Index 29.29 (95.25 kg, 180.34 cm) tw2 MDM: 07:52 Patient medically screened. latisha 08:13 Differential diagnosis: Nonspecific abd pain, gastritis, viral gastroenteritis, latisha gastroenteritis. Differential Diagnosis: Bronchitis Influenza Upper Respiratory Infection Sinusitis Pneumonia. Data reviewed: vital signs, nurses notes, lab test result(s), EKG, radiologic studies, plain films. Data interpreted: night monitor: rate is 96 beats/min, rhythm is regular, Pulse oximetry: on room air is 97 %. Test interpretation: by ED physician or midlevel provider: ECG. Counseling: I had a detailed discussion with the patient and/or guardian regarding: the historical points, exam findings, and any diagnostic results supporting the discharge/admit diagnosis, lab results, radiology results. 12/16 07:57 Order name: COVID-19 : Document "Date of Symptom Onset" if Symptomatic. 12/16 08:03 Order name: CBC with Diff; Complete Time: 09:04 latisha 12/16 08:03 Order name: Comprehensive Metabolic Panel; Complete Time: 09:04 latisha 12/16 08:03 Order name: Troponin (emerg Dept Use Only); Complete Time: 09:04 latisha 12/16 08:03 Order name: D-Dimer; Complete Time: 09:04 latisha 12/16 08:03 Order name: Chest Single View XRAY latisha 12/16 08:03 Order name: EKG; Complete Time: 08:04 latisha 12/16 08:03 Order name: EKG - Nurse/Tech; Complete Time: 08:21 latisha EC:31 Rate is 83 beats/min. Rhythm is regular. QRS [place] is Normal. NV interval is normal. QRS latisha interval is normal. QT interval is normal. No Q waves. T waves are Normal. No ST changes noted. Clinical impression: NSR w/ Non-specific ST/T Changes and No evidence of ischemia. Interpreted by me. Reviewed by me. Administered Medications: 08:20 Drug: Decadron - Dexamethasone 10 mg Route: IVP; Site: right antecubital; hb 09:05 Follow up: Response: No adverse reaction sv 08:20 Drug: Zithromax (azithromycin) 500 mg Route: IVPB; Infused Over: 1 hrs; Site: right hb antecubital; 10:00 Follow up: IV Status: Completed infusion iw 08:20 Drug: Pepcid (famotidine) 20 mg Route: IVP; Site: right antecubital; hb 09:04 Follow up: Response: No adverse reaction sv 08:20 Drug: Aspirin Chewable Tablet 324 mg Route: PO; hb 09:04 Follow up: Response: No adverse reaction sv 08:21 Drug: NS 0.9% 1000 ml Route: IV; Rate: 1 bolus; Site: right antecubital; hb 10:00 Follow up: IV Status: Completed infusion iw Disposition Summary: 12/16/20 09:41 Discharge Ordered Location: Home latisha Problem: new latisha Symptoms: have improved latisha Condition: Stable latisha Diagnosis - Acute upper respiratory infection, unspecified latisha - Diarrhea, unspecified latisha - Acute pharyngitis, unspecified latisha Followup: latisha - With: Private Physician - When: 5 - 6 days - Reason: Recheck today's complaints, Continuance of care, Re-evaluation by your physician Discharge Instructions: - Discharge Summary Sheet latisha - Food Choices to Help Relieve Diarrhea, Adult latisha - Diarrhea, Adult latisha - Upper Respiratory Infection, Adult latisha - Cool Mist Vaporizer latisha - Pharyngitis latisha - Upper Respiratory Infection, Adult, [id number] latisha - Aspirin and Your Heart latisha Forms: - Medication Reconciliation Form latisha - Thank You Letter latisha - Antibiotic Education latisha - Prescription Opioid Use latisha - Work release form eb Prescriptions: - albuterol sulfate 90 mcg/actuation Inhalation HFA aerosol inhaler - inhale 2 puff by INHALATION route every 6 hours; 1 puff; Refills: 0, Product [facility] Selection Permitted - dexamethasone 2 mg Oral tablet - take 1 tablet by ORAL route 2 times per day; 10 tablet; Refills: 0, Product [facility] Selection Permitted - Pepcid 20 mg Oral Tablet - take 1 tablet by ORAL route every 12 hours for 10 days; 20 tablet; Refills: 0, [facility] Product Selection Permitted - Zithromax 500 mg Oral Tablet - take 1 tablet by ORAL route once daily for 4 days; 4 tablet; Refills: 0, [facility] Product Selection Permitted Signatures: Dispatcher [employer] EDMS Carlos Storm MD MD cha Baxter, Heather, RN RN Lorenza Schuster RN RN tw2 Marcella Paul RN Chelo Azevedo RN iw Corrections: (The following items were deleted from the chart) 08:28 07:57 CORONAVIRUS ordered. [facility]
--- NOTE | 2020-12-16 09:41 | ER ---
Nurse's Notes [facility] Name: Christiano Johns Age: 45 yrs Sex: Male : 1975 Arrival Date: 12/16/2020 Time: 07:45 Bed 12 Private MD: Diagnosis: Acute upper respiratory infection, unspecified;Diarrhea, unspecified;Acute pharyngitis, unspecified Presentation: 12/16 07:48 Chief complaint: Patient states: i have been sicker than madisyn about 4 days ago that tw2 started with a sore throat. now it hurts when i breathe on my left side. it has been coming out both ends the last couple of draining. 4 people tested POSITIVE at work with that [employer] crap. Coronavirus screen: chills, cough unrelated to allergies, diarrhea, fatigue, sore throat, vomiting. Ebola Screen: Patient denies travel to an Ebola-affected area in the 21 days before illness onset. Initial Sepsis Screen: Does the patient meet any 2 criteria? No. Patient's initial sepsis screen is negative. Does the patient have a suspected source of infection? No. Patient's initial sepsis screen is negative. Risk Assessment: Do you want to hurt yourself or someone else? Patient reports no desire to harm self or others. Onset of symptoms was December 16, 2020. 07:48 Method Of Arrival: Ambulatory tw2 07:48 Acuity: TRAVIS 3 tw2 Triage Assessment: 07:51 General: Appears in no apparent distress. Behavior is calm, cooperative, appropriate tw2 for age. Pain: Complains of pain in left side of rib area and sore throat pain. GI: Reports diarrhea, nausea. Historical: - Allergies: 07:50 PENICILLINS; tw2 - Home Meds: 07:50 None [Active]; tw2 - PMHx: 07:50 Gout; GALLSTONES; Diabetes - NIDDM; Sleep Apnea; tw2 - Immunization history:: Client reports having NOT received the Covid vaccine. - Social history:: Smoking status: Patient reports the use of cigarette tobacco products, smokes one pack cigarettes per day. Screenin:53 Abuse screen: Denies threats or abuse. Denies injuries from another. Nutritional sv screening: No deficits noted. Tuberculosis screening: No symptoms or risk factors identified. Fall Risk None identified. Assessment: 08:21 General: Appears in no apparent distress. ill, Behavior is calm, cooperative. Pain: hb Pain currently is 4 out of 10 on a pain scale. Neuro: Level of Consciousness is awake, alert, obeys commands, Oriented to person, place, time, situation. Cardiovascular: Patient's skin is warm and dry. Respiratory: Reports shortness of breath at rest on exertion cough that is non-productive, Respiratory effort is even, unlabored, Respiratory pattern is regular, symmetrical. GI: Reports nausea. : No signs and/or symptoms were reported regarding the genitourinary system. EENT: No signs and/or symptoms were reported regarding the EENT system. Derm: Skin is pink, warm \\T\\ dry. Musculoskeletal: No signs and/or symptoms reported regarding the musculoskeletal system. 10:00 Reassessment: Patient appears in no apparent distress at this time. Patient and/or sv family updated on plan of care and expected duration. Pain level reassessed. Patient is alert, oriented x 3, equal unlabored respirations, skin warm/dry/pink. Vital Signs: 07:48 BP 137 / 95; Pulse 96; Resp 19; Temp 98.1(TE); Pulse Ox 97% on R/A; Weight 95.25 kg tw2 (R); Height 5 ft. 11 in. (180.34 cm) (R); 08:45 BP 125 / 82; Pulse 79; Resp 16; Pulse Ox 99% on R/A; sv 07:48 Body Mass Index 29.29 (95.25 kg, 180.34 cm) tw2 ED Course: 07:45 Patient arrived in ED. mr 07:50 Triage completed. tw2 07:51 Arm band placed on. tw2 07:52 Marcella Paul, PATRICIO is Primary Nurse. sv 07:52 Carlos Storm MD is Attending Physician. latisha 07:53 Patient has correct armband on for positive identification. Bed in low position. Call sv light in reach. Door closed. Head of bed elevated. 08:15 Inserted saline lock: 20 gauge in right antecubital area, using aseptic technique. sv Blood collected. Flushed right antecubital with 5 ml normal saline. 08:16 EKG done, by ED staff, reviewed by Carlos Storm MD. sv 08:21 COVID-19 : Document "Date of Symptom Onset" if Symptomatic. Sent. hb 08:37 Chest Single View XRAY In Process Unspecified. EDMS 10:23 No provider procedures requiring assistance completed. IV discontinued, intact, iw bleeding controlled, No redness/swelling at site. Pressure dressing applied. Administered Medications: 08:20 Drug: Decadron - Dexamethasone 10 mg Route: IVP; Site: right antecubital; hb 09:05 Follow up: Response: No adverse reaction sv 08:20 Drug: Zithromax (azithromycin) 500 mg Route: IVPB; Infused Over: 1 hrs; Site: right hb antecubital; 10:00 Follow up: IV Status: Completed infusion iw 08:20 Drug: Pepcid (famotidine) 20 mg Route: IVP; Site: right antecubital; hb 09:04 Follow up: Response: No adverse reaction sv 08:20 Drug: Aspirin Chewable Tablet 324 mg Route: PO; hb 09:04 Follow up: Response: No adverse reaction sv 08:21 Drug: NS 0.9% 1000 ml Route: IV; Rate: 1 bolus; Site: right antecubital; hb 10:00 Follow up: IV Status: Completed infusion iw Outcome: 09:41 Discharge ordered by MD. good 10:23 Discharged to home ambulatory, with family. iw 10:23 Condition: good 10:23 Discharge instructions given to patient, Instructed on discharge instructions, follow up and referral plans. medication usage, Demonstrated understanding of instructions, follow-up care, medications, Prescriptions given X 4. 10:24 Patient left the ED. iw Signatures: Dispatcher [employer] EDMS Marcella Paul RN RN sv Anderson, Corey, MD MD cha Rivera Candice mr Chelo Azevedo RN RN iw Baxter, Heather, RN RN hb Wise, Tara, RN RN tw2
[2020-12-16 10:37] VITALS: TEMP 98.1
[2020-12-16 10:38] VITALS: BP 125/82; O2SAT 99
--- NOTE | 2020-12-16 10:43 | RAD REPORT ---
EXAM DESCRIPTION: [place] Single View12/16/2020 8:37 am CLINICAL HISTORY: Cough COMPARISON: August 2020 FINDINGS: The lungs appear clear of acute infiltrate. The heart is normal size IMPRESSION: No acute abnormalities displayed
== END 2020-12-16 10:24 | disposition home or self-care (01) ==
LOC: ER 07:42
DX: J06.9 Acute upper respiratory infection, unspecified (principal); R19.7 Diarrhea, unspecified; J02.9 Acute pharyngitis, unspecified; Z20.822 Contact with and (suspected) exposure to COVID-19; M10.9 Gout, unspecified; E11.9 Type 2 diabetes mellitus without complications; G47.30 Sleep apnea, unspecified; F17.210 Nicotine dependence, cigarettes, uncomplicated
CPT/HCPCS: 36415; 71045; 80053; 84484; 85025; 85379; 93005; 96365; 96366; 96375; 99284; J0456; J1100; J7030; J7050; U0003

== ENCOUNTER 2022-06-23 14:51 | Emergency (ER) | payer OTHER, SELFPAY ==
--- OUTSIDE RECORDS SUMMARY | 2022-06-23 14:53 | XMS REPORT | Continuity of Care Document ---
:1975 Author Organization [facility] t Address [address] [place] [address] Care Team Providers Name Role Phone Pcp, Patient Does Not Have A Primary Care Physician [id number] BAIRON JAVIER Attending Clinician Unavailable Bairon Javier MD Attending Clinician VESNA GARIBAY Attending Clinician Unavailable Vesna Garibay MD Attending Clinician AMAIRANI MCKINNEY Attending Clinician Unavailable Amairani Bear Attending Clinician BLACK SANTACRUZ Attending Clinician Unavailable BLACK SANTACRUZ Admitting Clinician Unavailable Problems Condition Condition Condition Status Onset Resolution Last Treating Co mments Source Name Details Category Date Date Treatment Clinician Date Dyslipidem Dyslipidem Disease Active U nivers ia ia 05-21 ity of 00:00: [address] Hypomagnes Hypomagnes Disease Active U nivers emia emia 05-21 ity of 00:00: [address] Elevated Elevated Disease Active Unive rs alanine alanine 1-02 ity of aminotrans aminotrans [place] ferase ferase 00 Medical (ALT) (ALT) Branch level level Blood Blood Disease Active Univers pressure pressure 1-02 ity of elevated elevated 00:00: [place] without without 00 Medical history of history of Br anch HTN HTN Pain in Pain in Disease Active Univers both feet both feet 1-02 ity of 00:00: [place] 00 Medical Branch Morbid Morbid Disease Recurre 2016-05 Univers obesity obesity nce 2-22 [place]y of with body with body 00:[place] mass index mass index 00 Me dical of of Branch 40.0-49.9 40.0-49.9 Type 2 Type 2 Disease Active 2016-05 Univers diabetes diabetes 2-21 ity of mellitus mellitus 00:00: [place] with with 00 Medical hyperglyce hyperglyce Br anch stacey stacey Abscess of Abscess of Disease Active 2016-05 U nivers testis testis 2-20 ity of 00:00: [place] 00 Medical Branch Allergies, Adverse Reactions, Alerts Allergy Allergy Status Severity Reaction(s) Onset Inactive Treating Comm ents Source Name Type Date Date Clinician Penicill Propensi Active Hives 2015-05 Univer s ins ty to 2-08 ity of adverse 00:00: [place] reaction 00 Medical s Branch PENICILL Drug Active Hives 2015-05 Univers INS Class 2-08 ity of 00:00: [place] 00 Medical Branch Penicill Propensi Active Hives 2015-05 Univer s ins ty to 2-08 ity of adverse 00:00: [place] reaction 00 Medical s Branch Penicill Propensi Active Hives 2015-05 Univer s ins ty to 2-08 ity of adverse 00:00: [place] reaction 00 Medical s Branch Social History Social Habit Start Date Stop Date Quantity Comments Source History of tobacco Cigarette Smoker University of use [facility] Exposure to 2022-01-13 2022-01-23 Not sure [facility] SARS-CoV-2 (event) 00:00:00 04:48:00 [facility] Alcohol intake 2017-12-04 2017-12-04 0 /d University of 00:00:00 00:00:00 [facility] Cigarettes smoked 2017-05-21 2017-05-21 Univers ity of current (pack per 00:00:00 00:00:00 ) - Reported Branch Sex [birth year] Universit y of 00:00:00 00:00:00 [facility] Smoking Status Start Date Stop Date Source Smokes tobacco daily 2017-05-21 00:00:00 [facility] Medications Ordered Filled Start Stop Current Ordering Indication Dosage Frequency Signature Comments Components Source Medication Medication Date Date Medication? Clinician (SIG) Name Name FENTanyl PF 2021- No 75ug 75 mcg, Un shasha (SUBLIMAZE 01-23 Intramuscu it y of (PF)) 11:15: 10:17 lar, ONCE, [place] injection 00 :00 1 dose, On Medi afsaneh 75 mcg Sat01/23/22 Branch at 0615, Routine HYDROcodone 2021- No 1{tbl} 1 tablet, Univers -acetaminop 01-23 Oral, ONCE i ty of hen (NORCO) 11:00: 10:17 NOW, 1 Balaji as 10-325 mg 00 :00 dose, On Medica l tablet 1 Sat01/23/22 Branc h tablet at 0600, Routine traMADoL Yes [id number] 50mg Take 1 Univers (ULTRAM) 50 -06 tablet by ity of mg tablet 00:00: mouth [place] 00 every 8 Medical (eight) Branch hours as needed for Pain (scale 7-10). Indication s: acute pain clindamycin Yes [id number] 300mg Take 1 Univers 300 mg 9-06 capsule by ity of capsule 00:00: mouth 4 00 (four) Medical times Branch daily. ibuprofen Yes [id number] 800mg Take 1 U nivers 800 mg 9-06 tablet by ity of tablet 00:00: mouth [place] 00 every 8 Medical (eight) Branch hours as needed for Pain (scale 4-6) (ALTERNATE WITH ULTRAM FOR PAIN). ibuprofen 0 Yes [id number] 600mg Take 1 U nivers 600 mg 4-28 tablet by ity of tablet 00:00: mouth [place] 00 every 6 Medical (six) Branch hours as needed for Pain (scale 4-6). ibuprofen 0 Yes [id number] 600mg Take 1 U nivers 600 mg 4-28 tablet by ity of tablet 00:00: mouth [place] 00 every 6 Medical (six) Branch hours as needed for Pain (scale 4-6). clindamycin 2021- No [id number] 300mg Take 1 Univers 300 mg 09-14 capsule by ity of capsule 00:00: 04:59 mouth 4 [place] 00 :00 (four) Medical times Branch daily for 10 days. dexamethaso 2021- No 6mg 6 mg, [facility] ers ne sod phos 08-18 Intramuscu i ty of PF 16:30: 15:35 lar, ONCE, [place] injection 6 00 :00 1 dose, On Me dical mg 08/18/21 Branch at 1130, 1 mL cyclobenzap Yes [id number] 5mg Take 1 Univers rine 5 mg 4-01 tablet by ity o f tablet 00:00: mouth [place] 00 every 8 Medical (eight) Branch hours as needed for Muscle Spasms. cyclobenzap Yes [id number] 5mg Take 1 Univers rine 5 mg 4-01 tablet by ity o f tablet 00:00: mouth [place] 00 every 8 Medical (eight) Branch hours as needed for Muscle Spasms. cyclobenzap 0 Yes [id number] 5mg Take 1 Univers rine 5 mg 4-01 tablet by ity o f tablet 00:00: mouth [place] 00 every 8 Medical (eight) Branch hours as needed for Muscle Spasms. ibuprofen Yes [id number] 800mg Take 1 Univers 800 mg 2-20 tablet by ity of tablet 00:00: mouth [place] 00 every 8 Medical (eight) Branch hours as needed for Pain (scale 4-6). ibuprofen 2021-0 Yes [id number] 800mg Take 1 Univers 800 mg 2-20 tablet by ity of tablet 00:00: mouth [place] 00 every 8 Medical (eight) Branch hours as needed for Pain (scale 4-6). ibuprofen 2021-0 Yes [id number] 800mg Take 1 Univers 800 mg 2-20 tablet by ity of tablet 00:00: mouth [place] 00 every 8 Medical (eight) Branch hours as needed for Pain (scale 4-6). cyclobenzap 2021- No [id number] 5mg Take 1 Univers rine 5 mg -15 - tablet by ity of tablet 00:00: 00:00 mouth 3 [place] 00 :00 (three) Medical times Branch daily. azithromyci 2017-05 Yes 250mg Take 1 Uni vers n 250 mg 0-19 tablet by ity of tablet 00:00: mouth [place] 00 daily. Medical Branch albuterol 2017-05 Yes 2{puff} Inhale 2 U nivers 90 0-19 Puffs ity of mcg/actuati 00:00: every 4 Balaji as on inhaler 00 (four) Medical hours as Branch needed for Wheezing or Shortness of Breath. azithromyci 2017-05 Yes 250mg Take 1 Uni vers n 250 mg 0-19 tablet by ity of tablet 00:00: mouth [place] 00 daily. Medical Branch albuterol 2017-05 Yes 2{puff} Inhale 2 U nivers 90 0-19 Puffs ity of mcg/actuati 00:00: every 4 Balaji as on inhaler 00 (four) Medical hours as Branch needed for Wheezing or Shortness of Breath. azithromyci 2017-05 Yes 250mg Take 1 Uni vers n 250 mg 0-19 tablet by ity of tablet 00:00: mouth [place] 00 daily. Medical Branch albuterol 2017-05 Yes 2{puff} Inhale 2 U nivers 90 0-19 Puffs ity of mcg/actuati 00:00: every 4 Balaji as on inhaler 00 (four) Medical hours as Branch needed for Wheezing or Shortness of Breath. traMADOL 50 2017-05- No 50mg Take 1 Uni vers mg tablet 0-19 04-01 tablet by ity of 00:00: 00:00 mouth [place] 00 :00 every 6 Medical (six) Branch hours as needed for Pain (scale 4-6). HYDROcodone Yes 1{tbl} Take 1-2 Univers -acetaminop 7-18 tablets by it y of hen 5-325 00:00: mouth [place] mg tablet 00 every 6 Medical (six) Branch hours as needed for Pain (scale 7-10). ondansetron 2017- Yes 4mg Take 1 Univ ers 4 mg 7-18 tablet by ity of disintegrat 00:00: mouth [place] ing tablet 00 every 8 Medica l (eight) Branch hours as needed for Nausea and Vomiting (N/V). HYDROcodone Yes 1{tbl} Take 1-2 Univers -acetaminop 7-18 tablets by it y of hen 5-325 00:00: mouth [place] mg tablet 00 every 6 Medical (six) Branch hours as needed for Pain (scale 7-10). ondansetron Yes 4mg Take 1 Univ ers 4 mg 7-18 tablet by ity of disintegrat 00:00: mouth [place] ing tablet 00 every 8 Medica l (eight) Branch hours as needed for Nausea and Vomiting (N/V). HYDROcodone 2017- Yes 1{tbl} Take 1-2 Univers -acetaminop 7-18 tablets by it y of hen 5-325 00:00: mouth [place] mg tablet 00 every 6 Medical (six) Branch hours as needed for Pain (scale 7-10). ondansetron Yes 4mg Take 1 Univ ers 4 mg 7-18 tablet by ity of disintegrat 00:00: mouth [place] ing tablet 00 every 8 Medica l (eight) Branch hours as needed for Nausea and Vomiting (N/V). metFORMIN Yes [id number] 1000mg Take 1 Univers 1,000 mg 4-10 tablet by ity of tablet 00:00: mouth 2 (two) Medical times Branch daily with meals. atorvastati Yes [id number] 40mg Take 1 Univers n 40 mg 4-10 tablet by ity of tablet 00:00: mouth at [place] 00 bedtime. Medical Branch metFORMIN Yes [id number] 1000mg Take 1 Univers 1,000 mg 4-10 tablet by ity of tablet 00:00: mouth 2 (two) Medical times Branch daily with meals. atorvastati Yes [id number] 40mg Take 1 Univers n 40 mg 4-10 tablet by ity of tablet 00:00: mouth at [place] 00 bedtime. Medical Branch metFORMIN Yes [id number] 1000mg Take 1 Univers 1,000 mg 4-10 tablet by ity of tablet 00:00: mouth 2 (two) Medical times Branch daily with meals. atorvastati Yes [id number] 40mg Take 1 Univers n 40 mg 4-10 tablet by ity of tablet 00:00: mouth at [place] 00 bedtime. Medical Branch insulin 2016- Yes 9U inject 9 Univer s lispro, 2-23 Units ity of human, 100 00:00: under the [place] unit/mL 00 skin 3 Medical injection (three) Branch times daily before meals. insulin 2016-05 Yes 9U inject 9 Univer s lispro, 2-23 Units ity of human, 100 00:00: under the [place] unit/mL 00 skin 3 Medical injection (three) Branch times daily before meals. insulin 2016-05 Yes 9U inject 9 Univer s lispro, 2-23 Units ity of human, 100 00:00: under the [place] unit/mL 00 skin 3 Medical injection (three) Branch times daily before meals. nicotine 2016-05 Yes 1{patch Apply 1 Univers mg/24 hr 2-22 } Patch to ity of patch 00:00: area(s) [place] 00 every 24 Medical (twenty-fo Branch ur) hours. glucagon 2016-05 Yes 1mg 1 mg by Univ ers mg/mL SolR 2-22 Intramuscu ity of injection 00:00: lar route Balaji as 00 as needed Medical (blood Branch glucose is LESS than 60 mg/dL and patient is unable to swallow or has mental status changes). insulin 2016-05 Yes 26U inject 26 Unive rs glargine 2-22 Units ity of 100 unit/mL 00:00: under the [place] injection 00 skin at Medical bedtime. Branch nicotine 2016-05 Yes 1{patch Apply 1 Univers mg/24 hr 2-22 } Patch to ity of patch 00:00: area(s) [place] 00 every 24 Medical (twenty-fo Branch ur) hours. glucagon 2016-05 Yes 1mg 1 mg by Univ ers mg/mL SolR 2-22 Intramuscu ity of injection 00:00: lar route Balaji as 00 as needed Medical (blood Branch glucose is LESS than 60 mg/dL and patient is unable to swallow or has mental status changes). insulin 2016-05 Yes 26U inject 26 Unive rs glargine 2-22 Units ity of 100 unit/mL 00:00: under the [place] injection 00 skin at Medical bedtime. Branch nicotine 2016-05 Yes 1{patch Apply 1 Univers mg/24 hr 2-22 } Patch to ity of patch 00:00: area(s) [place] 00 every 24 Medical (twenty-fo Branch ur) hours. glucagon 2016-05 Yes 1mg 1 mg by Univ ers mg/mL SolR 2-22 Intramuscu ity of injection 00:00: lar route Balaji as 00 as needed Medical (blood Branch glucose is LESS than 60 mg/dL and patient is unable to swallow or has mental status changes). insulin 2016-05 Yes 26U inject 26 Unive rs glargine 2-22 Units ity of 100 unit/mL 00:00: under the [place] injection 00 skin at Medical bedtime. Branch Vital Signs Vital Name Observation Time Observation Value Comments Source Systolic blood 2022-01-23 09:51:00 177 mm[Hg] Univer sity of [facility] Diastolic blood 2022-01-23 09:51:00 112 mm[Hg] Unive rsity [facility] Heart rate 2022-01-23 09:51:00 99 /min [facility] Body temperature 2022-01-23 09:51:[address] [facility] Respiratory rate 2022-01-23 09:51:00 20 /min [facility] Body height 2022-01-23 09:51:00 180.3 cm [facility] Body weight 2022-01-23 09:51:00 99.791 kg [facility] BMI 2022-01-23 09:51:00 30.68 kg/m2 [facility] Oxygen saturation in 2022-01-23 09:51:00 97 /min [facility] Arterial blood by [facility] Pulse oximetry Branch Systolic blood 2021-09-14 09:58:00 156 mm[Hg] Univer sity of [facility] Diastolic blood 2021-09-14 09:58:00 101 mm[Hg] Unive rsity [facility] Heart rate 2021-09-14 09:58:00 76 /min Univers ty [facility] Body temperature 2021-09-14 09:58:[address] [facility] Respiratory rate 2021-09-14 09:58:00 18 /min [facility] Body height 2021-09-14 09:58:00 180.3 cm [facility] Body weight 2021-09-14 09:58:00 99.791 kg Universi ty [facility] [place] [facility] BMI 2021-09-14 09:58:00 30.68 kg/m2 [facility]i ty [facility] [place] [facility] Oxygen saturation in 2021-09-14 09:58:00 96 /min University of Arterial blood by [facility] Pulse oximetry Branch Systolic blood 2021-08-18 14:58:00 140 mm[Hg] Univer sity of pressure [place] [facility] [place] Diastolic blood 2021-08-18 14:58:00 90 mm[Hg] Unive rsity of pressure [place] [facility] Heart rate 2021-08-18 14:58:00 89 /min Universi ty [facility] [place] [facility] Body temperature 2021-08-18 14:58:00 36.44 [place] [facility] ersity of [place] [facility] [place] Respiratory rate 2021-08-18 14:58:00 16 /min Univ ersity of [place] [facility] Body height 2021-08-18 14:58:00 180.3 cm Universi ty [facility] [place] [facility] Body weight 2021-08-18 14:58:00 99.791 kg Universi ty [facility] [place] [facility] BMI 2021-08-18 14:58:00 30.68 kg/m2 [facility]i [facility] [place] [facility] Oxygen saturation in 2021-08-18 14:58:00 95 /min University of Arterial blood by [facility] Pulse oximetry Branch Procedures Procedure Date / Time Performed Performing Clinician Sour e CONSENT/REFUSAL FOR 2022-01-23 09:43:14 Doctor Unassigned, No Un iversity of [place] DIAGNOSIS AND Name Medical Branch TREATMENT CONSENT/REFUSAL FOR 2021-09-14 10:06:15 Doctor Unassigned, No [facility] [place] DIAGNOSIS AND Name Medical Branch TREATMENT CONSENT/REFUSAL FOR 2021-08-18 14:52:03 Doctor Unassigned, No Un [facility] [place] DIAGNOSIS AND Name Medical Branch TREATMENT Encounters Start End Encounter Admission Attending Care Care Encounter Source Date/Time Date/Time Type Type Clinicians Facility Department ID 2022-01-23 2022-01-23 Emergency X YAYA VALUCRECIA ERT [id number] Univers 05:00:00 05:30:00 BAIRON baltazar [facility] 2022-01-23 2022-01-23 Emergency [place] [facility] [id number] Univers 05:00:00 05:30:00 Bairon SANDOVAL [id number] [facility]y [facility] [id number] [facility] [id number] [address] 2021-09-14 2021-09-14 Emergency X [facility] ERT [id number] Univers 04:53:00 05:16:00 VESNA ity [facility] 2021-09-14 2021-09-14 Emergency [facility] [id number] Univers 04:53:00 05:16:00 Vesna SANDOVAL [id number] i ty of [place] [id number] [facility] [id number] [address] 2021-08-18 2021-08-18 Emergency X [facility] ERT [id number] Univers 10:01:00 12:40:00 AMAIRANI it y of [facility] 2021-08-18 2021-08-18 Emergency [facility] [id number] Univers 10:01:00 12:40:00 Amairani SANDOVAL [id number] ity [facility] [id number] [facility] [id number] [address] 2021-07-09 2021-07-[address] ERT [id number] Univers 10:50:00 12:25:00 BLACK ity of [facility] Results This patient has no known results.
[2022-06-23] MEDS ORDERED: HYDROCODONE/APAP 5/325 MG TAB ONE (15:23)
--- NOTE | 2022-06-23 16:30 | RAD REPORT ---
EXAM DESCRIPTION: RAD - Ankle Left 3 View -06/23/2022 3:44 pm CLINICAL HISTORY: Left ankle pain status post injury FINDINGS: No fracture or dislocation is seen. Soft tissue swelling
--- NOTE | 2022-06-23 17:06 | EDPHYS ---
Physician Documentation [facility] Name: Christiano Johns Age: 46 yrs Sex: Male : 1975 Arrival Date: 06/23/2022 Time: 14:54 Bed 16 Private MD: ED Physician Chris Snell HPI: 06/23 15:08 This 46 yrs old Male presents to ER via Wheelchair with complaints of Fall Injury, jmm Ankle Swelling. 15:08 Onset: The symptoms/episode began/occurred today. Is a 46-year-old male with a history jmm of diabetes mellitus, gout the presents emerged part with complaints of left lower leg pain, ankle pain. Patient states he initially injured it approximately a week ago but developed redness this morning. Denies fever. Historical: - Allergies: 15:01 PENICILLINS; hb - PMHx: 15:01 Diabetes - NIDDM; GALLSTONES; Gout; Sleep Apnea; hb - Immunization history:: Adult Immunizations unknown. - Social history:: Smoking status: unknown. ROS: 15:08 Constitutional: Negative for fever, chills, and weight loss, Cardiovascular: Negative jmm for chest pain, palpitations, and edema, Respiratory: Negative for shortness of breath, cough, wheezing, and pleuritic chest pain. 15:08 MS/extremity: Positive for pain. 15:08 All other systems are negative. Exam: 15:08 Constitutional: This is a well developed, well nourished patient who is awake, alert, jmm and in no acute distress. Head/Face: atraumatic. Eyes: EOMI, no conjunctival erythema appreciated ENT: Moist Mucus Membranes Neck: Trachea midline, Supple Chest/axilla: Normal chest wall appearance and motion. Cardiovascular: Regular rate and rhythm. No edema appreciated Respiratory: Normal respirations, no respiratory distress appreciated Abdomen/GI: Non distended Back: Normal ROM 15:08 Skin: Erythema noted to the left ankle on the lateral surface, tender to palpation. 15:08 Neuro: Orientation: is normal, Mentation: is normal, Memory: is normal. 15:08 Psych: Behavior/mood is pleasant, cooperative. Vital Signs: 15:00 BP 140 / 94; Pulse 99; Resp 16; Temp 97.3; Pulse Ox 100% on R/A; Weight 99.79 kg; hb Height 5 ft. 11 in. (180.34 cm); Pain 10/10; 16:12 BP 135 / 83; Pulse 94; Resp 18 S; Pulse Ox 100% on R/A; kc6 15:00 Body Mass Index 30.68 (99.79 kg, 180.34 cm) hb MDM: 15:08 Patient medically screened. [facility] 17:01 Data reviewed: vital signs, nurses notes. [facility] 17:03 Independent interpretation of the following test(s) in the Emergency Department X-Ray: james My interpretation is No fracture appreciated. Counseling: I had a detailed discussion with the patient and/or guardian regarding: the historical points, exam findings, and any diagnostic results supporting the discharge/admit diagnosis, radiology results, the need for outpatient follow up, to return to the emergency department if symptoms worsen or persist or if there are any questions or concerns that arise at home. ED course: X-ray negative. Due to tenderness on palpation along with redness and induration we will treat for cellulitis. Patient otherwise advised follow-up with orthopedics and given strict return precautions. Patient should use medication. 06/23 15:11 Order name: XRAY Ankle LEFT 3 view; Complete Time: 16:38 [facility] Administered Medications: 15:21 Drug: HYDROcodone-acetaminophen 5 mg-325 mg 1 tabs Route: PO; [facility] 17:22 Follow up: Response: No adverse reaction; Pain is decreased; RASS: Alert and Calm (0) [facility] 17:22 Drug: Doxycycline 100 mg Route: PO; [facility] 17:22 Follow up: Response: No adverse reaction [facility] Disposition Summary: 06/23/22 17:05 Discharge Ordered Location: Home [facility] Condition: Stable [facility] Diagnosis - Cellulitis of the lower extremity [facility] Followup: [facility] - With: Adis Evans MD - When: 2 - 3 days - Reason: Recheck today's complaints, Continuance of care, Re-evaluation by your physician Discharge Instructions: - Discharge Summary Sheet [facility] - Cellulitis, Adult [facility] Forms: - Medication Reconciliation Form [facility] - Thank You Letter edouard - Antibiotic Education [facility] - Prescription Opioid Use [facility] - Work release form iw Prescriptions: - Doxycycline Hyclate 100 mg Oral Tablet - take 1 tablet by ORAL route every 12 hours; 20 tablet; Refills: 0, Product [facility] Selection Permitted - Diclofenac Sodium 75 mg Oral Tablet Sustained Release - take 1 tablet by ORAL route 2 times per day; 30 tablet; Refills: 0, Product james Selection Permitted Signatures: Dispatcher [employer] Yordan Guzman PA PA jmm Baxter, Heather, RN RN hb Taylor Lopez RN RN [id number]
--- NOTE | 2022-06-23 17:06 | ER ---
Nurse's Notes [facility] Name: Christiano Johns Age: 46 yrs Sex: Male : 1975 Arrival Date: 06/23/2022 Time: 14:54 Bed 16 Private MD: Diagnosis: Cellulitis of the lower extremity Presentation: 06/23 15:00 Chief complaint: Slipped and slid down approx 6 stairs 2 days ago, c/o left ankle pain hb 10/10. Unable to bear weight. Denies other injuries. Coronavirus screen: At this time, the client does not indicate any symptoms associated with coronavirus-19. Ebola Screen: No symptoms or risks identified at this time. Initial Sepsis Screen: Does the patient meet any 2 criteria? No. Patient's initial sepsis screen is negative. Does the patient have a suspected source of infection? No. Patient's initial sepsis screen is negative. Risk Assessment: Do you want to hurt yourself or someone else? Patient reports no desire to harm self or others. Onset of symptoms was June 21, 2022. 15:00 Method Of Arrival: Wheelchair hb 15:00 Acuity: TRAVIS 4 hb Historical: - Allergies: 15:01 PENICILLINS; hb - PMHx: 15:01 Diabetes - NIDDM; GALLSTONES; Gout; Sleep Apnea; hb - Immunization history:: Adult Immunizations unknown. - Social history:: Smoking status: unknown. Screenin:16 [facility] ED Fall Risk Assessment (Adult) History of falling in the last 3 months, kc6 including since admission Yes- single mechanical fall (1 pt) Confusion or Disorientation No (0 pts) Intoxicated or Sedated No (0 pts) Impaired Gait No (0 pts) Mobility Assist Device Used No (0 pt) Altered Elimination No (0 pt) Score/Fall Risk Level 0 - 2 = Low Risk Oriented to surroundings, Maintained a safe environment, Educated pt \T\ family on fall prevention, incl call for assistance when getting out of bed, Assessed \T\ reinforced patient's understanding of fall precautions, Hourly rounding (assess needs \T\ fall precautionary measures) done. Abuse screen: Denies threats or abuse. Denies injuries from another. Nutritional screening: No deficits noted. Tuberculosis screening: No symptoms or risk factors identified. Assessment: 15:11 General: Appears in no apparent distress. comfortable, Behavior is calm, cooperative, kc6 appropriate for age. Pain: Complains of pain in left foot Pain does not radiate. Pain currently is 10 out of 10 on a pain scale. Quality of pain is described as sharp, shooting, Pain began 2-3 days ago. Is continuous, Alleviated by rest, Aggravated by weight bearing, Noted to be grimacing, resistant to movement, Also complains of no other associated symptoms. Neuro: Cooper Agitation-Sedation Scale (RASS): 0 - Alert and Calm Level of Consciousness is awake, alert, obeys commands, Oriented to person, place, time, situation, Appropriate for age. Cardiovascular: Capillary refill < 3 seconds. Respiratory: Airway is patent Trachea midline Respiratory effort is even, unlabored, Respiratory pattern is regular, symmetrical. GI: No signs and/or symptoms were reported involving the gastrointestinal system. : No signs and/or symptoms were reported regarding the genitourinary system. EENT: No signs and/or symptoms were reported regarding the EENT system. Derm: No signs and/or symptoms reported regarding the dermatologic system. Skin is intact, Skin is pink, warm \T\ dry. Musculoskeletal: Circulation, motion, and sensation intact. Capillary refill < 3 seconds, Range of motion: limited in left ankle. 16:11 Reassessment: Patient appears in no apparent distress at this time. No changes from kc6 previously documented assessment. Patient and/or family updated on plan of care and expected duration. Pain level reassessed. Patient is alert, oriented x 3, equal unlabored respirations, skin warm/dry/pink. Vital Signs: 15:00 BP 140 / 94; Pulse 99; Resp 16; Temp 97.3; Pulse Ox 100% on R/A; Weight 99.79 kg; hb Height 5 ft. 11 in. (180.34 cm); Pain 10/10; 16:12 BP 135 / 83; Pulse 94; Resp 18 S; Pulse Ox 100% on R/A; kc6 15:00 Body Mass Index 30.68 (99.79 kg, 180.34 cm) ED Course: 14:54 Patient arrived in ED. as 14:55 Yordan Estrada PA is PHCP. [facility] 14:55 Chris Snell MD is Attending Physician. [facility] 15:01 Triage completed. hb 15:01 Arm band placed on. hb 15:02 Taylor Lopez, RN is Primary Nurse. kc6 15:17 Patient has correct armband on for positive identification. Bed in low position. Call kc6 light in reach. Side rails up X2. Adult w/ patient. 15:45 XRAY Ankle LEFT 3 view In Process Unspecified. EDMS 17:05 Adis Evans MD is Referral Physician. [facility] 17:22 No provider procedures requiring assistance completed. Patient did not have IV access kc6 during this emergency room visit. Administered Medications: 15:21 Drug: HYDROcodone-acetaminophen 5 mg-325 mg 1 tabs Route: PO; kc6 17:22 Follow up: Response: No adverse reaction; Pain is decreased; RASS: Alert and Calm (0) kc6 17:22 Drug: Doxycycline 100 mg Route: PO; kc6 17:22 Follow up: Response: No adverse reaction kc6 Medication: 17:22 VIS not applicable for this client. kc6 Outcome: 17:05 Discharge ordered by . [facility] 17:22 Discharged to home via wheelchair, with significant other. kc6 17:22 Condition: stable 17:22 Discharge instructions given to patient, significant other, Instructed on discharge instructions, follow up and referral plans. medication usage, Demonstrated understanding of instructions, follow-up care, medications, Prescriptions given X 2. 17:23 Patient left the ED. kc6 Signatures: Dispatcher [employer] EDMS Yordan Estrada PA PA jmm Martinez, Amelia as Cecilia Diaz RN RN Taylor Lopez, RN RN kc6
[2022-06-23] MEDS ORDERED: DOXYCYCLINE 100 MG CAP PO ONE (17:11)
[2022-06-23 17:28] VITALS: TEMP 97.3; O2SAT 100
[2022-06-23 17:29] VITALS: BP 135/83
== END 2022-06-23 17:23 | disposition home or self-care (01) ==
LOC: ER 14:51
DX: L03.116 Cellulitis of left lower limb (principal); Z88.0 Allergy status to penicillin
CPT/HCPCS: 99283

== ENCOUNTER 2024-06-24 07:45 | Emergency (ER) | payer OTHER, SELFPAY ==
--- OUTSIDE RECORDS SUMMARY | 2024-06-24 07:47 | XMS REPORT | Continuity of Care Document ---
Author Name Unknown Address [address] [facility] [address] [place] [address] [facility] thconnect Address [address] [facility] [address] [place] [address] Care Team Providers Care Photograph Tinter Name Role Phone Pcp, Patient Does Not Have A Primary Care Physic sruthi Campaigns, Generic Provider Attending Clinician Unavailable GOLDEN NEW Attending Clinician UnavailGOLDEN Espinosa Attending Clinician UnavailGolden Espinosa MD Attending Clinician [phone] Campaigns, Generic Provider Attending Clinician Unavailable JEREMY TONG Attending Clinician Unavailable JEREMY TONG Attending Clinician Unavailable GISELA GUDINO Attending Clinician UnavailGisela Lindsay DO Attending Clinician [phone] BAIRON LANDA Attending Clinician Unavailable Bairon Landa MD Attending Clinician [phone] VESNA ESCAMILLA Attending Clinician Unavailable Vesna Escamilla MD Attending Clinician [phone] AMAIRANI MCKINNEY Attending Clinician UnavailAmairani Santana Attending Clinician + [phone] BLACK SANTACRUZ Attending Clinician Unavailable JEREMY TONG Admitting Clinician Unavailable GISELA GUDINO Admitting Clinician UnavailBLACK Wilkes Admitting Clinician Unavailable Payers Payer Name Policy Type Policy Number Effective Date Expirati on Date Source Problems Condition Name Condition Details Condition Category Status Onset Date Resolution Date Last Treatment Date Treating Clinician Comments Source Dyslipidem ia Dyslipidem ia Disease Active 05-21 00:00: 00 [facility] Hypomagnes emia Hypomagnes emia Disease Active 05-21 00:00: 00 [facility] Elevated alanine aminotrans ferase (ALT) level Elevated alanine aminotrans ferase (ALT) level Disease Active 05-21 00:00: 00 [facility] Blood pressure elevated without history of HTN Blood pressure elevated without history of HTN Disease Active 05-21 00:00: 00 [facility] Pain in both feet Pain in both feet Disease Active 05-21 00:00: 00 [facility] Morbid obesity with body mass index of 40.0-49.9 Morbid obesity with body mass index of 40.0-49.9 Disease Recurre nce 2016-05 00:00: 00 [facility] Type 2 diabetes mellitus with hyperglyce stacey Type 2 diabetes mellitus with hyperglyce stacey Disease Active 2016-05 00:00: 00 [facility] Abscess of testis Abscess of testis Disease Active 2016-05 00:00: 00 [facility] Allergies, Adverse Reactions, Alerts Allergy Name Allergy Type Status Severity Reaction(s) Onset Date Inactive Date Treating Clinician Comments Source Penicill ins Propensi ty to adverse reaction s Active Hives 2015-05 00:00: 00 [facility] PENICILL INS Drug Class Active Hives 2015-05 00:00: 00 [facility] Penicill ins Propensi ty to adverse reaction s Active Hives 2015-05 00:00: 00 [facility] Penicill ins Propensi ty to adverse reaction s Active Hives 2015-05 00:00: 00 [facility] Social History Social Habit Start Date Stop Date Quantity Comments Source [facility] History of tobacco use Cigarette Smoker [facility] Alcoholic beverage intake 2023-12-30 00:00:00 2023-12-30 00:00:00 0 /d [facility] History of Social function 2023-12-30 00:00:00 2023-12-30 00:00:00 [facility] Exposure to SARS-CoV-2 (event) 2022-01-13 00:00:00 2022-01-23 04:48:00 Not sure [facility] Alcohol intake 2017-12-04 00:00:00 2017-12-04 00:00:00 0 /d [facility] Cigarettes smoked current (pack per day) - Reported 2017-05-21 00:00:00 2017-05-21 00:00:00 [facility] Sex assigned at 1975 00:00:00 1975 00:00:00 [facility] Smoking Status Start Date Stop Date Source Smokes tobacco daily 2017-05-21 00:00:00 [facility] Medications Ordered Medication Name Filled Medication Name Start Date Stop Date Current Medication? Ordering Clinician Indication Dosage Frequency Signature (SIG) Comments Components Source ofloxacin 0.3 % ophthalmic solution 12-29 00:00: 00 Yes [id number] 1[drp] Place 1 Drop in left eye every 4 (four) hours. While awake for one week [facility] ketorolac 0.5 % ophthalmic solution 12-29 00:00: 00 Yes [id number] 1[drp] Place 1 Drop in left eye every 6 (six) hours as needed (left eye pain). [facility] iopamidol (ISOVUE 370-500 mL) injection 100 mL 09-24 08:15: 00 09-24 08:15 :00 No [id number] 100mL 100 mL, Intravenou s, ONCE, 1 dose, On Sat09/25/23 at 0315, Routine [facility] ketorolac (TORADOL) injection 15 mg 09-24 07:45: 00 09-24 07:08 :00 No 15mg 15 mg, Slow IV Push, ONCE, 1 dose, On Sat09/25/23 at 0245, [facility] acetaminoph en (TYLENOL) tablet 650 mg 09-24 07:45: 00 09-24 07:08 :00 No 650mg 650 mg, Oral, ONCE, 1 dose, On Sat09/25/23 at 0245, [facility] NaCl 0.9% (NS) bolus infusion 1,000 mL 09-24 07:00: 00 09-24 08:01 :00 No 1000mL at 999 mL/hr, 1,000 mL, IV Infusion, ONCE, 1 dose, On Sat09/25/23 at 0200, [facility] ibuprofen 800 mg tablet 09-24 00:00: 00 Yes [id number] 800mg Take 1 tablet by mouth every 8 (eight) hours as needed for Pain (scale 4-6). [facility] diazePAM (VALIUM) tablet 5 mg 09-22 14:45: 00 09-22 14:53 :00 No 5mg 5 mg, Oral, ONCE, 1 dose, On Sat09/23/23 at 0945, [facility] methocarbam oL 750 mg tablet 09-22 00:00: 00 Yes [id number] 750mg Take 1 tablet by mouth every 6 (six) hours as needed for Pain (scale 1-3). [facility] FENTanyl PF (SUBLIMAZE (PF)) injection 75 mcg 01-23 11:15: 00 01-23 10:17 :00 No 75ug 75 mcg, Intramuscu lar, ONCE, 1 dose, On Sat01/23/22 at 0615, Routine [facility] HYDROcodone -acetaminop hen (NORCO) 10-325 mg tablet 1 tablet 01-23 11:00: 00 01-23 10:17 :00 No 1{tbl} 1 tablet, Oral, ONCE NOW, 1 dose, On Sat01/23/22 at 0600, Routine [facility] traMADoL (ULTRAM) 50 mg tablet 01-23 00:00: 00 Yes [id number] 50mg Take 1 tablet by mouth every 8 (eight) hours as needed for Pain (scale 7-10). Indication s: acute pain [facility] clindamycin 300 mg capsule 01-23 00:00: 00 Yes [id number] 300mg Take 1 capsule by mouth 4 (four) times daily. [facility] ibuprofen 800 mg tablet 01-23 00:00: 00 Yes [id number] 800mg Take 1 tablet by mouth every 8 (eight) hours as needed for Pain (scale 4-6) (ALTERNATE WITH ULTRAM FOR PAIN). [facility] ibuprofen 600 mg tablet 09-14 00:00: 00 Yes [id number] 600mg Take 1 tablet by mouth every 6 (six) hours as needed for Pain (scale 4-6). [facility] clindamycin 300 mg capsule 09-14 00:00: 00 09-25 04:59 :00 No [id number] 300mg Take 1 capsule by mouth 4 (four) times daily for 10 days. [facility] dexamethaso ne sod phos PF injection 6 mg 08-18 16:30: 00 08-18 15:35 :00 No 6mg 6 mg, Intramuscu lar, ONCE, 1 dose, On Sat08/18/21 at 1130, 1 mL [facility] cyclobenzap rine 5 mg tablet 08-18 00:00: 00 Yes [id number] 5mg Take 1 tablet by mouth every 8 (eight) hours as needed for Muscle Spasms. [facility] ibuprofen 800 mg tablet 2-20 00:00: 00 Yes [id number] 800mg Take 1 tablet by mouth every 8 (eight) hours as needed for Pain (scale 4-6). [facility] cyclobenzap rine 5 mg tablet 1-15 00:00: 00 08-18 00:00 :00 No [id number] 5mg Take 1 tablet by mouth 3 (three) times daily. [facility] azithromyci n 250 mg tablet 2017-05 00:00: 00 Yes 250mg Take 1 tablet by mouth daily. [facility] albuterol 90 mcg/actuati on inhaler 2017-05 00:00: 00 Yes 2{puff} Inhale 2 Puffs every 4 (four) hours as needed for Wheezing or Shortness of Breath. [facility] traMADOL 50 mg tablet 2017-05 00:00: 00 08-18 00:00 :00 No 50mg Take 1 tablet by mouth every 6 (six) hours as needed for Pain (scale 4-6). [facility] HYDROcodone -acetaminop hen 5-325 mg tablet 12-04 00:00: 00 Yes 1{tbl} Take 1-2 tablets by mouth every 6 (six) hours as needed for Pain (scale 7-10). [facility] ondansetron 4 mg disintegrat ing tablet 12-04 00:00: 00 Yes 4mg Take 1 tablet by mouth every 8 (eight) hours as needed for Nausea and Vomiting (N/V). [facility] atorvastati n 40 mg tablet 08-27 00:00: 00 Yes [id number] 40mg Take 1 tablet by mouth at bedtime. [facility] metFORMIN 1,000 mg tablet 08-27 00:00: 00 Yes [id number] 1000mg Take 1 tablet by mouth 2 (two) times daily with meals. [facility] insulin lispro, human, 100 unit/mL injection 2016-05 00:00: 00 Yes 9U inject 9 Units under the skin 3 (three) times daily before meals. [facility] nicotine 21 mg/24 hr patch 2016-05 00:00: 00 Yes 1{patch } Apply 1 Patch to area(s) every 24 (twenty-fo ur) hours. [facility] glucagon 1 mg/mL SolR injection 2016-05 00:00: 00 Yes 1mg 1 mg by Intramuscu lar route as needed (blood glucose is LESS than 60 mg/dL and patient is unable to swallow or has mental status changes). [facility] insulin glargine 100 unit/mL injection 2016-05 00:00: 00 Yes 26U inject 26 Units under the skin at bedtime. [facility] Vital Signs Vital Name Observation Time Observation Value Comments Karen palacio Systolic blood pressure 2023-12-30 17:34:00 143 mm[Hg] [facility] Diastolic blood pressure 2023-12-30 17:34:00 104 mm[Hg] [facility] Heart rate 2023-12-30 17:34:00 97 /min [facility] Body temperature 2023-12-30 17:34:00 37.06 Rochelle [facility] Respiratory rate 2023-12-30 17:34:00 20 /min [facility] Oxygen saturation in Arterial blood by Pulse oximetry 2023-12-30 17:34:00 100 /min [facility] Body height 2023-12-30 15:36:00 180.3 cm [facility] Body weight 2023-12-30 15:36:00 95.255 kg [facility] BMI 2023-12-30 15:36:00 29.29 kg/m2 [facility] Systolic blood pressure 2023-09-25 08:06:00 138 mm[Hg] [facility] Diastolic blood pressure 2023-09-25 08:06:00 88 mm[Hg] [facility] Heart rate 2023-09-25 08:06:00 82 /min [facility] Respiratory rate 2023-09-25 08:06:00 16 /min [facility] Oxygen saturation in Arterial blood by Pulse oximetry 2023-09-25 08:06:00 98 /min [facility] Body temperature 2023-09-25 05:43:00 37 Rochelle [facility] Body height 2023-09-25 05:43:00 180.3 cm [facility] Body weight 2023-09-25 05:43:00 96.163 kg [facility] BMI 2023-09-25 05:43:00 29.57 kg/m2 [facility] Systolic blood pressure 2023-09-23 14:32:00 161 mm[Hg] [facility] Diastolic blood pressure 2023-09-23 14:32:00 103 mm[Hg] [facility] Heart rate 2023-09-23 14:32:00 101 /min [facility] Body temperature 2023-09-23 14:32:00 36.5 Rochelle [facility] Respiratory rate 2023-09-23 14:32:00 18 /min [facility] Body height 2023-09-23 14:32:00 180.3 cm [facility] Body weight 2023-09-23 14:32:00 96.48 kg [facility] BMI 2023-09-23 14:32:00 29.67 kg/m2 [facility] Oxygen saturation in Arterial blood by Pulse oximetry 2023-09-23 14:32:00 97 /min [facility] Systolic blood pressure 2022-01-23 09:51:00 177 mm[Hg] [facility] Diastolic blood pressure 2022-01-23 09:51:00 112 mm[Hg] [facility] Heart rate 2022-01-23 09:51:00 99 /min [facility] Body temperature 2022-01-23 09:51:00 37.5 Rochelle [facility] Respiratory rate 2022-01-23 09:51:00 20 /min [facility] Body height 2022-01-23 09:51:00 180.3 cm [facility] Body weight 2022-01-23 09:51:00 99.791 kg [facility] BMI 2022-01-23 09:51:00 30.68 kg/m2 [facility] Oxygen saturation in Arterial blood by Pulse oximetry 2022-01-23 09:51:00 97 /min [facility] Systolic blood pressure 2021-09-14 09:58:00 156 mm[Hg] [facility] Diastolic blood pressure 2021-09-14 09:58:00 101 mm[Hg] [facility] Heart rate 2021-09-14 09:58:00 76 /min [facility] Body temperature 2021-09-14 09:58:00 35.94 Rochelle [facility] Respiratory rate 2021-09-14 09:58:00 18 /min [facility] Body height 2021-09-14 09:58:00 180.3 cm [facility] Body weight 2021-09-14 09:58:00 99.791 kg [facility] BMI 2021-09-14 09:58:00 30.68 kg/m2 [facility] Oxygen saturation in Arterial blood by Pulse oximetry 2021-09-14 09:58:00 96 /min [facility] Systolic blood pressure 2021-08-18 14:58:00 140 mm[Hg] [facility] Diastolic blood pressure 2021-08-18 14:58:00 90 mm[Hg] [facility] Heart rate 2021-08-18 14:58:00 89 /min [facility] Body temperature 2021-08-18 14:58:00 36.44 Rochelle [facility] Respiratory rate 2021-08-18 14:58:00 16 /min [facility] Body height 2021-08-18 14:58:00 180.3 cm [facility] Body weight 2021-08-18 14:58:00 99.791 kg [facility] BMI 2021-08-18 14:58:00 30.68 kg/m2 [facility] Oxygen saturation in Arterial blood by Pulse oximetry 2021-08-18 14:58:00 95 /min [facility] Procedures Procedure Date / Time Performed Performing Clinicia n Source LIPASE 2023-09-25 06:37:00 Jeremy Tong [facility] COMP. METABOLIC PANEL (90201) 2023-09-25 06:37:00 Jeremy Tong [facility] CBC WITH DIFF 2023-09-25 06:37:00 Jeremy Tong [facility] URINALYSIS 2023-09-25 06:37:00 Jeremy Tong [facility] XR SHOULDER 2+ VW RIGHT 2023-09-23 14:55:32 Gisela Gudino [facility] CONSENT/REFUSAL FOR DIAGNOSIS AND TREATMENT 2022-01-23 09:43:14 Doctor Unassigned, [place] [facility] CONSENT/REFUSAL FOR DIAGNOSIS AND TREATMENT 2021-09-14 10:06:15 Doctor Unassigned, [place] [facility] CONSENT/REFUSAL FOR DIAGNOSIS AND TREATMENT 2021-08-18 14:52:03 Doctor Unassigned, [place] [facility] Encounters Start Date/Time End Date/Time Encounter Type Admission Type Attending [facility] Facility Care Department Encounter ID Source 2024-01-08 00:00:00 2024-01-08 10:04:01 Letter (Out) Campaigns, Generic Provider Campaigns, Generic Provider [facility] [id number] 350.1.13.10 4.2.7.2.686 [id number] [facility] 2023-12-30 10:38:00 2023-12-30 12:46:00 Emergency X GOLDEN NEW ROBERT [facility] ERT [id number] [facility] 2023-12-30 10:38:00 2023-12-30 12:46:00 Emergency Golden New [facility] [id number] 350.1.13.10 4.2.7.2.686 [id number] [facility] 2023-10-02 00:00:00 2023-10-02 10:14:00 Letter (Out) Campaigns, Generic Provider [facility] [id number] 350.1.13.10 4.2.7.2.686 [id number] [facility] 2023-09-25 00:47:00 2023-09-25 03:09:00 Emergency X JEREMY TONG SALMIN [facility] ERT [id number] [facility] 2023-09-25 00:47:00 2023-09-25 03:09:00 Emergency Jeremy Tong [facility] [id number] 350.1.13.10 4.2.7.2.686 [id number] [facility] 2023-09-23 09:36:00 2023-09-23 10:24:00 Emergency X TERESE GISELA [facility] ERT [id number] [facility] 2023-09-23 09:36:00 2023-09-23 10:24:00 Emergency Gisela Gudino [facility] 1.2.840.114 350.1.13.10 4.2.7.2.686 [id number] [facility] 2023-04-26 10:33:50 2023-04-26 10:33:50 Outpatient [facility] [id number] Chay Kaufman [place] 2022-01-23 05:00:00 2022-01-23 05:30:00 Emergency X BAIRON LANDA [facility] ERT [id number] [facility] 2022-01-23 05:00:00 2022-01-23 05:30:00 Emergency Bairon Landa [facility] [id number] 350.1.13.10 4.2.7.2.686 [id number] [facility] 2021-09-14 04:53:00 2021-09-14 05:16:00 Emergency X ANDIVESNA [facility] ERT [id number] [facility] 2021-09-14 04:53:00 2021-09-14 05:16:00 Emergency Andi Vesna [facility] [id number] 350.1.13.10 4.2.7.2.686 [id number] [facility] 2021-08-18 10:01:00 2021-08-18 12:40:00 Emergency X AMAIRANI MCKINNEY [facility] ERT [id number] [facility] 2021-08-18 10:01:00 2021-08-18 12:40:00 Emergency Amairani Mckinney [facility] [id number] 350.1.13.10 4.2.7.2.686 [id number] [facility] 2021-07-09 10:50:00 2021-07-09 12:25:00 Emergency X BLACK SANTACRUZ [facility] ERT [id number] [facility] Results Test Description Test Time Test Comments Results Result Co mments Source [facility]17513[facility]2023-09-25 07:10:32* Test Item Value Reference Range Interpretation Comme nts NA (test code = 5108797681) 139 mmol/L 135-145 K (test code = 0823973005) 4.0 mmol/L 3.5-5.0 CL (test code = 4141707860) 102 mmol/L 98-108 CO2 TOTAL (test code = 1947754323) 27 mmol/L 23-31 AGAP (test code = 8820235414) 10 2-16 BUN (test code = 1771583764) 24 mg/dL 7-23 H GLUCOSE (test code = 7856907514) 117 mg/dL 70-110 H CREATININE (test code = 2160-0) 0.89 mg/dL 0.60-1.25 TOTAL BILI (test code = 3197565500) 0.4 mg/dL 0.1-1.1 CALCIUM (test code = 4397040068) 9.7 mg/dL 8.6-10.6 T PROTEIN (test code = 0390260964) 7.7 g/dL 6.3-8.2 ALBUMIN (test code = 5367442385) 4.3 g/dL 3.5-5.0 ALK PHOS (test code = 8828817482) 61 U/L 34-122 ALTv (test code = 1742-6) 41 U/L 5-50 AST(SGOT) (test code = 9122923151) 27 U/L 13-40 eGFR (test code = 28393-2) 107.0 mL/min/1.73m2 CKD-EPI eGFR (2020). Assuming creatinine has been stable day-to-day for at least three months, the eGFR indicates Category G1 (>= 90 mL/min/1.73 m2) Lab Interpretation (test code = 23142-2) Abnormal [facility]:10:26* Test Item Value Reference Range Interpretation Comme nts LIPASE (test code = 5402640690) 169 U/L 0-220 Lab Interpretation (test cod e = 55419-0) Normal [facility]+ VW [id number] 14:59:33XR SHOULDER 2+ VW RIGHT HISTORY: ?right shoulder pain COMPARISON: 07/09/2021. Findings:Osseous structures are intact. Chronic right rib fractures. Mildacromioclavicular and glenohumeral osteoarthrosis.[facility]
[2024-06-24] MEDS ORDERED: ACETAMINOPHEN 500 MG TAB ONE (08:09)
[2024-06-24] MEDS ORDERED: DIAZEPAM 5 MG TABLET ONE (08:09)
[2024-06-24] MEDS ORDERED: KETOROLAC 30 MG/ML INJ ONE (08:09)
[2024-06-24] MEDS ORDERED: LIDOCAINE 4% PATCH ONE (08:10)
--- NOTE | 2024-06-24 08:51 | RAD REPORT ---
EXAMINATION: ONE VIEW CHEST XR CLINICAL INDICATION: R sided chest wall/shoulder injury TECHNIQUE: Frontal chest projection is submitted. Examination is limited by patient positioning and t echnique. COMPARISON: 12/16/2020 FINDINGS: Mild linear atelectasis in both lung bases. Lungs otherwise clear. The heart is upper limit of normal in size. No displaced fractures identified.
--- NOTE | 2024-06-24 08:55 | RAD REPORT ---
EXAMINATION: XR RIGHT SHOUDLER CLINICAL INDICATION: Male, 48 years old. sided chest wall/shoulder injury RIGHT TECHNIQUE: Multiple views of the right shoulder were obtained. COMPARISON: No prior exam. FINDINGS: AC joint and glenohumeral joint arthritic changes are present, mild to moderate. No acute f racture, dislocation or aggressive marrow lesion.
--- NOTE | 2024-06-24 09:01 | EDPHYS ---
Physician Documentation [facility] Name: Christiano Johns Age: 48 yrs Sex: Male : 1975 Arrival Date: 06/24/2024 Time: 07:45 Bed 11 Private MD: ED Physician Toni Rogers HPI: 06/24 08:07 This 48 yrs old Male presents to ER via Ambulatory with complaints of Fall ec2 Injury, Right arm shoulder neck pain. 08:07 Patient arrives today for evaluation of right shoulder pain. Patient reports that he ec2 had a fall 2 nights ago. Reports no LOC, no head strike complaining of right shoulder and right trapezius pain.. Historical: - Allergies: 07:59 PENICILLINS; iw - Home Meds: 07:59 None [Active]; iw - PMHx: 07:59 Diabetes - NIDDM; GALLSTONES; Gout; Sleep Apnea; iw - PSHx: 07:59 Cholecystectomy; iw - Immunization history:: Adult Immunizations not up to date. - Infectious Disease History:: Denies. - Social history:: Smoking status: Patient reports the use of cigarette tobacco products, smokes one pack cigarettes per day. ROS: 08:08 Constitutional: as per hpi ec2 Exam: 08:08 Constitutional: GEN: NAD Head: atraumatic Eyes: EOMI Ears: External ears are ec2 normal. CV: regular rate LUNGS: no respiratory distress ABD: non-distended SKIN: no evidence of rashes MSK: no evidence of trauma, right trap with TTP, no deformities, right distal clavicle with TTP as well, no deformities. Right proximal humerus with TTP as well. Intact distal neurovascular status. Vital Signs: 07:59 BP 114 / 99; Pulse 97; Resp 19; Temp 97.8; Pulse Ox 95% on R/A; Weight 99.79 kg; Height iw 5 ft. 10 in. ; Pain 7/10; 07:59 Body Mass Index 31.57 (99.79 kg, 177.8 cm) iw 07:59 Pain Scale: Adult iw MDM: 07:57 Medical Screening Exam initiated ec2 08:08 Data reviewed: vital signs, nurses notes. ED course: Patient arrives today for ec2 evaluation of right shoulder pain after a fall. Will obtain chest x-ray as well as shoulder x-ray. Suspect contusion, doubt fracture or dislocation.. 09:00 ED course: Radiographs negative. Will discharge home. Scar contusion. Return ec2 precautions given.. 06/24 08:02 Order name: CXR XRAY; Complete Time: 08:52 ec2 06/24 08:02 Order name: Shoulder Right (2 View) XRAY; Complete Time: 09:00 ec2 06/24 08:02 Order name: Sling; Complete Time: 09:43 ec2 Administered Medications: 08:21 Drug: Ketorolac IM 30 mg IM once Route: IM; Site: left deltoid; iw 09:30 Follow up: Response: No adverse reaction iw 08:21 Drug: Lidoderm Topical Patch 5 % (700 mg/patch) 1 patches Topical once; leave on for 12 iw hours; cover most painful area; may cut into smaller pieces Route: Topical; Site: right upper arm; 08:21 Drug: Acetaminophen PO 1000 mg PO once Route: PO; iw 09:30 Follow up: Response: No adverse reaction; Pain is decreased iw 08:21 Drug: Diazepam PO 10 mg PO once Route: PO; iw 09:30 Follow up: Response: No adverse reaction; Pain is decreased iw Disposition Summary: 06/24/24 09:00 Discharge Ordered Notes: Location: Home ec2 Condition: Stable ec2 Diagnosis - Contusion of shoulder ec2 Followup: ec2 - With: Private Physician - When: - Reason: Re-evaluation by your physician Discharge Instructions: - Discharge Summary Sheet ec2 - Shoulder Pain, [id number] ec2 Forms: - Work release form ec2 - Medication Reconciliation Form ec2 - Antibiotic Education ec2 - Prescription Opioid Use ec2 - Patient Portal Instructions ec2 - Leadership Thank You Letter ec2 Prescriptions: - methocarbamol 500 mg Oral tablet - take 2 tablets ORAL route 4 times per day; 30 tablet; Refills: 0, Product ec2 Selection Permitted Signatures: Dispatcher [employer] Chelo Aaron RN RN iw Corral, Edwin, MD MD ec2
--- NOTE | 2024-06-24 09:01 | ER ---
Nurse's Notes [facility] Name: Christiano Johns Age: 48 yrs Sex: Male : 1975 Arrival Date: 06/24/2024 Time: 07:45 Bed 11 Private MD: Diagnosis: Contusion of shoulder Presentation: 06/24 07:58 Chief complaint: Patient states: 2 nights ago he fell out of his bed and hit his right iw shoulder on his dresser, has pain radiating from shoulder into his neck , hard to move arm upward. Coronavirus screen: At this time, the client does not indicate any symptoms associated with coronavirus-19. Ebola Screen: No symptoms or risks identified at this time. Initial Sepsis Screen: Does the patient meet any 2 criteria? No. Patient's initial sepsis screen is negative. Does the patient have a suspected source of infection? No. Patient's initial sepsis screen is negative. Risk Assessment: Do you want to hurt yourself or someone else? Patient reports no desire to harm self or others. Onset of symptoms was June 22, 2024. 07:58 Method Of Arrival: Ambulatory iw 07:58 Acuity: TRAVIS 4 iw Triage Assessment: 08:00 General: Appears in no apparent distress. Behavior is calm, cooperative. iw Historical: - Allergies: 07:59 PENICILLINS; iw - Home Meds: 07:59 None [Active]; iw - PMHx: 07:59 Diabetes - NIDDM; GALLSTONES; Gout; Sleep Apnea; iw - PSHx: 07:59 Cholecystectomy; iw - Immunization history:: Adult Immunizations not up to date. - Infectious Disease History:: Denies. - Social history:: Smoking status: Patient reports the use of cigarette tobacco products, smokes one pack cigarettes per day. Screenin:42 [facility] ED Fall Risk Assessment (Adult) History of falling in the last 3 months, iw including since admission Yes- single mechanical fall (1 pt) Confusion or Disorientation No (0 pts) Intoxicated or Sedated No (0 pts) Impaired Gait No (0 pts) Mobility Assist Device Used No (0 pt) Altered Elimination No (0 pt) Score/Fall Risk Level 0 - 2 = Low Risk Oriented to surroundings, Maintained a safe environment. Abuse screen: Denies threats or abuse. Denies injuries from another. Nutritional screening: No deficits noted. Tuberculosis screening: No symptoms or risk factors identified. Assessment: 08:00 General: Appears in no apparent distress. Behavior is calm, cooperative. Pain: iw Complains of pain in anterior aspect of right shoulder and posterior aspect of right shoulder. Neuro: Level of Consciousness is awake, alert, obeys commands, Oriented to person, place, time, situation, Cardiovascular: Patient's skin is warm and dry. Respiratory: Respiratory effort is even, unlabored, Respiratory pattern is regular. Derm: Skin is intact, is healthy with good turgor. Musculoskeletal: Range of motion: limited in right shoulder. 09:40 Reassessment: Patient appears in no apparent distress at this time. Patient and/or iw family updated on plan of care and expected duration. Pain level reassessed. Patient is alert, oriented x 3, equal unlabored respirations, skin warm/dry/pink. Vital Signs: 07:59 BP 114 / 99; Pulse 97; Resp 19; Temp 97.8; Pulse Ox 95% on R/A; Weight 99.79 kg; Height iw 5 ft. 10 in. ; Pain 7/10; 07:59 Body Mass Index 31.57 (99.79 kg, 177.8 cm) iw 07:59 Pain Scale: Adult iw ED Course: 07:48 Patient arrived in ED. mr 07:51 Chelo Azevedo, RN is Primary Nurse. iw 07:57 Toni Rogers MD is Attending Physician. ec2 07:59 Triage completed. iw 07:59 Arm band placed on. iw 08:00 Patient has correct armband on for positive identification. Provided Education on: . iw 08:36 CXR XRAY In Process Unspecified. EDMS 08:36 Shoulder Right (2 View) XRAY In Process Unspecified. EDMS 09:42 No provider procedures requiring assistance completed. Patient did not have IV access iw during this emergency room visit. Administered Medications: 08:21 Drug: Ketorolac IM 30 mg IM once Route: IM; Site: left deltoid; iw 09:30 Follow up: Response: No adverse reaction iw 08:21 Drug: Lidoderm Topical Patch 5 % (700 mg/patch) 1 patches Topical once; leave on for 12 iw hours; cover most painful area; may cut into smaller pieces Route: Topical; Site: right upper arm; 08:21 Drug: Acetaminophen PO 1000 mg PO once Route: PO; iw 09:30 Follow up: Response: No adverse reaction; Pain is decreased iw 08:21 Drug: Diazepam PO 10 mg PO once Route: PO; iw 09:30 Follow up: Response: No adverse reaction; Pain is decreased iw Medication: 08:00 VIS not applicable for this client. iw Outcome: 09:00 Discharge ordered by . ec2 09:42 Discharged to home ambulatory, with family, iw 09:42 Condition: good 09:42 Discharge instructions given to patient, family, Instructed on discharge instructions, follow up and referral plans. medication usage, Demonstrated understanding of instructions, follow-up care, medications, Prescriptions given X 1, 09:43 Patient left the ED. ld1 Signatures: Dispatcher [employer]DA[employer] Candice Sheikh, Fred Ibarra mr Chelo Azevedo RN RN iw Clarisse Hathaway RN RN ld1 Toni Rogers MD MD ec2 Corrections: (The following items were deleted from the chart) 19:23 09:42 Discharge instructions given to patient, family, Instructed on discharge iw instructions, follow up and referral plans. medication usage, Demonstrated understanding of instructions, follow-up care, medications, Prescriptions given X 3, iw
[2024-06-24 09:47] VITALS: BP 114/99; TEMP 97.8; O2SAT 95
== END 2024-06-24 09:43 | disposition home or self-care (01) ==
LOC: ER 07:45
DX: S40.011A Contusion of right shoulder, initial encounter (principal); F17.210 Nicotine dependence, cigarettes, uncomplicated
CPT/HCPCS: 71045; J2003

== ENCOUNTER 2024-09-07 16:04 | Emergency (ER) | payer OTHER, SELFPAY ==
--- OUTSIDE RECORDS SUMMARY | 2024-09-07 16:08 | XMS REPORT | Continuity of Care Document ---
Author Name Unknown Address [address] [facility] [address] [place] [address] [facility] [place] Address [address] [facility] [address] [place] [address] Care Team Providers Care Supervisor [employer] Name Role Phone Pcp, Patient Does Not Have A Primary Care Physic sruthi Campaigns, Generic Provider Attending Clinician Unavailable GOLDEN NEW Attending Clinician UnavailGOLDEN Espinosa Attending Clinician UnavailGolden Espinosa MD Attending Clinician [phone] Campaigns, Generic Provider Attending Clinician Unavailable JEREMY TONG Attending Clinician Unavailable JEREMY TONG Attending Clinician Unavailable GISELA GUDINO Attending Clinician Unavailab Gisela Vazquez DO Attending Clinician [phone] BAIRON LANDA Attending Clinician Unavailable Bairon Landa MD Attending Clinician [phone] VESNA ESCAMILLA Attending Clinician Unavailable Vesna Escamilla MD Attending Clinician [phone] AMAIRANI MCKINNEY Attending Clinician UnavailAmairani Santana Attending Clinician + [phone] BLACK SANTACRUZ Attending Clinician Unavailable JEREMY TONG Admitting Clinician Unavailable GISELA GUDINO Admitting Clinician UnavailBLACK Wilkes Admitting Clinician Unavailable Payers Payer Name Policy Type Policy Number Effective Date Expirati on Date Source Problems Condition Name Condition Details Condition Category Status Onset Date Resolution Date Last Treatment Date Treating Clinician Comments Source Dyslipidem ia Dyslipidem ia Disease Active 05-21 00:00: 00 [facility] Hypomagnes emia Hypomagnes emia Disease Active 05-21 00:00: 00 [facility] Elevated alanine aminotrans ferase (ALT) level Elevated alanine aminotrans ferase (ALT) level Disease Active 05-21 00:00: 00 [facility] Blood pressure elevated without history of HTN Blood pressure elevated without history of HTN Disease Active 05-21 00:00: 00 [facility] Pain in both feet Pain in both feet Disease Active 05-21 00:00: 00 [facility] Morbid obesity with body mass index of 40.0-49.9 Morbid obesity with body mass index of 40.0-49.9 Disease Recurre nce 2016-05 00:00: 00 [facility] Type 2 diabetes mellitus with hyperglyce stacey Type 2 diabetes mellitus with hyperglyce stacey Disease Active 2016-05 00:00: 00 [facility] Abscess of testis Abscess of testis Disease Active 2016-05 00:00: 00 [facility] Allergies, Adverse Reactions, Alerts Allergy Name Allergy Type Status Severity Reaction(s) Onset Date Inactive Date Treating Clinician Comments Source Penicill ins Propensi ty to adverse reaction s Active Hives 2015-05 00:00: 00 [facility] PENICILL INS Drug Class Active Hives 2015-05 00:00: 00 [facility] Penicill ins Propensi ty to adverse reaction s Active Hives 2015-05 00:00: 00 [facility] Penicill ins Propensi ty to adverse reaction s Active Hives 2015-05 00:00: 00 [facility] Social History Social Habit Start Date Stop Date Quantity Comments Source [facility] of tobacco use Cigarette Smoker [facility] Alcoholic beverage intake 2023-12-30 00:00:00 2023-12-30 00:00:00 0 /d [facility] History of Social function 2023-12-30 00:00:00 2023-12-30 00:00:00 [facility] Exposure to SARS-CoV-2 (event) 2022-01-13 00:00:00 2022-01-23 04:48:00 Not sure [facility] Alcohol intake 2017-12-04 00:00:00 2017-12-04 00:00:00 0 /d [facility] Cigarettes smoked current (pack per day) - Reported 2017-05-21 00:00:00 2017-05-21 00:00:00 [facility] Sex assigned at 1975 00:00:00 1975 00:00:00 [facility] Smoking Status Start Date Stop Date Source Smokes tobacco daily 2017-05-21 00:00:00 [facility] Medications Ordered Medication Name Filled Medication Name Start Date Stop Date Current Medication? Ordering Clinician Indication Dosage Frequency Signature (SIG) Comments Components Source ofloxacin 0.3 % ophthalmic solution 12-29 00:00: 00 Yes [id number] 1[drp] Place 1 Drop in left eye every 4 (four) hours. While awake for one week [facility] ketorolac 0.5 % ophthalmic solution 12-29 00:00: 00 Yes [id number] 1[drp] Place 1 Drop in left eye every 6 (six) hours as needed (left eye pain). [facility] iopamidol (ISOVUE 370-500 mL) injection 100 mL 09-24 08:15: 00 09-24 08:15 :00 No [id number] 100mL 100 mL, Intravenou s, ONCE, 1 dose, On Sat09/25/23 at 0315, Routine [facility] ketorolac (TORADOL) injection 15 mg 09-24 07:45: 00 09-24 07:08 :00 No 15mg 15 mg, Slow IV Push, ONCE, 1 dose, On Sat09/25/23 at 0245, [facility] acetaminoph en (TYLENOL) tablet 650 mg 09-24 07:45: 00 09-24 07:08 :00 No 650mg 650 mg, Oral, ONCE, 1 dose, On Sat09/25/23 at 0245, [facility] NaCl 0.9% (NS) bolus infusion 1,000 mL 09-24 07:00: 00 09-24 08:01 :00 No 1000mL at 999 mL/hr, 1,000 mL, IV Infusion, ONCE, 1 dose, On Sat09/25/23 at 0200, [facility] ibuprofen 800 mg tablet 09-24 00:00: 00 Yes [id number] 800mg Take 1 tablet by mouth every 8 (eight) hours as needed for Pain (scale 4-6). [facility] diazePAM (VALIUM) tablet 5 mg 09-22 14:45: 00 09-22 14:53 :00 No 5mg 5 mg, Oral, ONCE, 1 dose, On Sat09/23/23 at 0945, [facility] methocarbam oL 750 mg tablet 09-22 00:00: 00 Yes [id number] 750mg Take 1 tablet by mouth every 6 (six) hours as needed for Pain (scale 1-3). [facility] FENTanyl PF (SUBLIMAZE (PF)) injection 75 mcg 01-23 11:15: 00 01-23 10:17 :00 No 75ug 75 mcg, Intramuscu lar, ONCE, 1 dose, On Sat01/23/22 at 0615, Routine [facility] HYDROcodone -acetaminop hen (NORCO) 10-325 mg tablet 1 tablet 01-23 11:00: 00 01-23 10:17 :00 No 1{tbl} 1 tablet, Oral, ONCE NOW, 1 dose, On Sat01/23/22 at 0600, Routine [facility] traMADoL (ULTRAM) 50 mg tablet 01-23 00:00: 00 Yes [id number] 50mg Take 1 tablet by mouth every 8 (eight) hours as needed for Pain (scale 7-10). Indication s: acute pain [facility] clindamycin 300 mg capsule 01-23 00:00: 00 Yes [id number] 300mg Take 1 capsule by mouth 4 (four) times daily. [facility] ibuprofen 800 mg tablet 01-23 00:00: 00 Yes [id number] 800mg Take 1 tablet by mouth every 8 (eight) hours as needed for Pain (scale 4-6) (ALTERNATE WITH ULTRAM FOR PAIN). [facility] ibuprofen 600 mg tablet 09-14 00:00: 00 Yes [id number] 600mg Take 1 tablet by mouth every 6 (six) hours as needed for Pain (scale 4-6). [facility] clindamycin 300 mg capsule 09-14 00:00: 00 09-25 04:59 :00 No [id number] 300mg Take 1 capsule by mouth 4 (four) times daily for 10 days. [facility] dexamethaso ne sod phos PF injection 6 mg 08-18 16:30: 00 08-18 15:35 :00 No 6mg 6 mg, Intramuscu lar, ONCE, 1 dose, On Sat08/18/21 at 1130, 1 mL [facility] cyclobenzap rine 5 mg tablet 08-18 00:00: 00 Yes [id number] 5mg Take 1 tablet by mouth every 8 (eight) hours as needed for Muscle Spasms. [facility] ibuprofen 800 mg tablet 2-20 00:00: 00 Yes [id number] 800mg Take 1 tablet by mouth every 8 (eight) hours as needed for Pain (scale 4-6). [facility] cyclobenzap rine 5 mg tablet 1-15 00:00: 00 08-18 00:00 :00 No [id number] 5mg Take 1 tablet by mouth 3 (three) times daily. [facility] azithromyci n 250 mg tablet 2017-05 00:00: 00 Yes 250mg Take 1 tablet by mouth daily. [facility] albuterol 90 mcg/actuati on inhaler 2017-05 00:00: 00 Yes 2{puff} Inhale 2 Puffs every 4 (four) hours as needed for Wheezing or Shortness of Breath. [facility] traMADOL 50 mg tablet 2017-05 00:00: 00 08-18 00:00 :00 No 50mg Take 1 tablet by mouth every 6 (six) hours as needed for Pain (scale 4-6). [facility] HYDROcodone -acetaminop hen 5-325 mg tablet 12-04 00:00: 00 Yes 1{tbl} Take 1-2 tablets by mouth every 6 (six) hours as needed for Pain (scale 7-10). [facility] ondansetron 4 mg disintegrat ing tablet 12-04 00:00: 00 Yes 4mg Take 1 tablet by mouth every 8 (eight) hours as needed for Nausea and Vomiting (N/V). [facility] atorvastati n 40 mg tablet 08-27 00:00: 00 Yes [id number] 40mg Take 1 tablet by mouth at bedtime. [facility] metFORMIN 1,000 mg tablet 08-27 00:00: 00 Yes [id number] 1000mg Take 1 tablet by mouth 2 (two) times daily with meals. [facility] insulin lispro, human, 100 unit/mL injection 2016-05 00:00: 00 Yes 9U inject 9 Units under the skin 3 (three) times daily before meals. [facility] nicotine 21 mg/24 hr patch 2016-05 00:00: 00 Yes 1{patch } Apply 1 Patch to area(s) every 24 (twenty-fo ur) hours. [facility] glucagon 1 mg/mL SolR injection 2016-05 00:00: 00 Yes 1mg 1 mg by Intramuscu lar route as needed (blood glucose is LESS than 60 mg/dL and patient is unable to swallow or has mental status changes). [facility] insulin glargine 100 unit/mL injection 2016-05 00:00: 00 Yes 26U inject 26 Units under the skin at bedtime. [facility] Vital Signs Vital Name Observation Time Observation Value Comments Karen palacio Systolic blood pressure 2023-12-30 17:34:00 143 mm[Hg] [facility] Diastolic blood pressure 2023-12-30 17:34:00 104 mm[Hg] [facility] Heart rate 2023-12-30 17:34:00 97 /min [facility] Body temperature 2023-12-30 17:34:00 37.06 [place] [facility] Respiratory rate 2023-12-30 17:34:00 20 /min [facility] Oxygen saturation in Arterial blood by Pulse oximetry 2023-12-30 17:34:00 100 /min [facility] Body height 2023-12-30 15:36:00 180.3 cm [facility] Body weight 2023-12-30 15:36:00 95.255 kg [facility] BMI 2023-12-30 15:36:00 29.29 kg/m2 [facility] Systolic blood pressure 2023-09-25 08:06:00 138 mm[Hg] [facility] Diastolic blood pressure 2023-09-25 08:06:00 88 mm[Hg] [facility] Heart rate 2023-09-25 08:06:00 82 /min [facility] Respiratory rate 2023-09-25 08:06:00 16 /min [facility] Oxygen saturation in Arterial blood by Pulse oximetry 2023-09-25 08:06:00 98 /min [facility] Body temperature 2023-09-25 05:43:00 37 [place] [facility] Body height 2023-09-25 05:43:00 180.3 cm [facility] Body weight 2023-09-25 05:43:00 96.163 kg [facility] BMI 2023-09-25 05:43:00 29.57 kg/m2 [facility] Systolic blood pressure 2023-09-23 14:32:00 161 mm[Hg] [facility] Diastolic blood pressure 2023-09-23 14:32:00 103 mm[Hg] [facility] Heart rate 2023-09-23 14:32:00 101 /min [facility] Body temperature 2023-09-23 14:32:00 36.5 [place] [facility] Respiratory rate 2023-09-23 14:32:00 18 /min [facility] Body height 2023-09-23 14:32:00 180.3 cm [facility] Body weight 2023-09-23 14:32:00 96.48 kg [facility] BMI 2023-09-23 14:32:00 29.67 kg/m2 [facility] Oxygen saturation in Arterial blood by Pulse oximetry 2023-09-23 14:32:00 97 /min [facility] Systolic blood pressure 2022-01-23 09:51:00 177 mm[Hg] [facility] Diastolic blood pressure 2022-01-23 09:51:00 112 mm[Hg] [facility] Heart rate 2022-01-23 09:51:00 99 [facility] Body temperature 2022-01-23 09:51:00 37.5 [place] [facility] Respiratory rate 2022-01-23 09:51:00 20 /min [facility] Body height 2022-01-23 09:51:00 180.3 cm [facility] Body weight 2022-01-23 09:51:00 99.791 kg [facility] BMI 2022-01-23 09:51:00 30.68 kg/m2 [facility] Oxygen saturation in Arterial blood by Pulse oximetry 2022-01-23 09:51:00 97 /min [facility] Systolic blood pressure 2021-09-14 09:58:00 156 mm[Hg] [facility] Diastolic blood pressure 2021-09-14 09:58:00 101 mm[Hg] [facility] Heart rate 2021-09-14 09:58:00 76 /min [facility] Body temperature 2021-09-14 09:58:00 35.94 [place] [facility] Respiratory rate 2021-09-14 09:58:00 18 /min [facility] Body height 2021-09-14 09:58:00 180.3 cm [facility] Body weight 2021-09-14 09:58:00 99.791 kg [facility] BMI 2021-09-14 09:58:00 30.68 kg/m2 [facility] Oxygen saturation in Arterial blood by Pulse oximetry 2021-09-14 09:58:00 96 /min [facility] Systolic blood pressure 2021-08-18 14:58:00 140 mm[Hg] [facility] Diastolic blood pressure 2021-08-18 14:58:00 90 mm[Hg] [facility] Heart rate 2021-08-18 14:58:00 89 /min [facility] Body temperature 2021-08-18 14:58:00 36.44 [place] [facility] Respiratory rate 2021-08-18 14:58:00 16 /min [facility] Body height 2021-08-18 14:58:00 180.3 cm [facility] Body weight 2021-08-18 14:58:00 99.791 kg [facility] BMI 2021-08-18 14:58:00 30.68 kg/m2 [facility] Oxygen saturation in Arterial blood by Pulse oximetry 2021-08-18 14:58:00 95 /min [facility] Procedures Procedure Date / Time Performed Performing Clinicia n Source LIPASE 2023-09-25 06:37:00 [facility] COMP. METABOLIC PANEL ([id number]) 2023-09-25 06:37:00 Jeremy Tong [facility] CBC WITH DIFF 2023-09-25 06:37:00 Jeremy Tong [facility] URINALYSIS 2023-09-25 06:37:00 Jeremy Tong [facility] XR SHOULDER 2+ VW RIGHT 2023-09-23 14:55:32 Gisela Gudino [facility] CONSENT/REFUSAL FOR DIAGNOSIS AND TREATMENT 2022-01-23 09:43:14 Doctor Unassigned, [place] [facility] CONSENT/REFUSAL FOR DIAGNOSIS AND TREATMENT 2021-09-14 10:06:15 Doctor Unassigned, [place] [facility] CONSENT/REFUSAL FOR DIAGNOSIS AND TREATMENT 2021-08-18 14:52:03 Doctor Unassigned, [place] [facility] Encounters Start Date/Time End Date/Time Encounter Type Admission Type Attending [facility] Facility Care Department Encounter ID Source 2024-01-08 00:00:00 2024-01-08 10:04:01 Letter (Out) Campaigns, Generic Provider Campaigns, Generic Provider [facility] [id number] 350.1.13.10 4.2.7.2.686 [id number] [facility] 2023-12-30 10:38:00 2023-12-30 12:46:00 Emergency X GOLDEN NEW ROBERT [facility] ERT [id number] [facility] 2023-12-30 10:38:00 2023-12-30 12:46:00 Emergency Golden New [facility] 1.2.840.114 350.1.13.10 4.2.7.2.686 [id number] [facility] 2023-10-02 00:00:00 2023-10-02 10:14:00 Letter (Out) Campaigns, Generic Provider [facility] [id number] 350.1.13.10 4.2.7.2.686 [id number] [facility] 2023-09-25 00:47:00 2023-09-25 03:09:00 Emergency JEREMY GILBERT SALMIN [facility] ERT [id number] [facility] 2023-09-25 00:47:00 2023-09-25 03:09:00 Emergency Jeremy Tong [facility] 1.2.840.114 350.1.13.10 4.2.7.2.686 [id number] [facility] 2023-09-23 09:36:00 2023-09-23 10:24:00 Emergency X GISELA GUDINO [facility] ERT [id number] [facility] 2023-09-23 09:36:00 2023-09-23 10:24:00 Emergency Gisela Gudino [facility] 1.2.840.114 350.1.13.10 4.2.7.2.686 [id number] [facility] 2023-04-26 10:33:50 2023-04-26 10:33:50 Outpatient [facility] [id number] Chay Kaufman [place] 2022-01-23 05:00:00 2022-01-23 05:30:00 Emergency X BAIRON LANDA [facility] ERT [id number] [facility] 2022-01-23 05:00:00 2022-01-23 05:30:00 Emergency Bairon Landa [facility] [id number] 350.1.13.10 4.2.7.2.686 [id number] [facility] 2021-09-14 04:53:00 2021-09-14 05:16:00 Emergency X PHOENIXVESNA [facility] ERT [id number] [facility] 2021-09-14 04:53:00 2021-09-14 05:16:00 Emergency Vesna Escamilla [facility] [id number] 350.1.13.10 4.2.7.2.686 [id number] [facility] 2021-08-18 10:01:00 2021-08-18 12:40:00 Emergency X AMAIRANI MCKINNEY [facility] ERT [id number] [facility] 2021-08-18 10:01:00 2021-08-18 12:40:00 Emergency Amairani Mckinney [facility] [id number] 350.1.13.10 4.2.7.2.686 [id number] [facility] 2021-07-09 10:50:00 2021-07-09 12:25:00 Emergency X BLACK SANTACRUZ [facility] ERT [id number] [facility] Results Test Description Test Time Test Comments Results Result Co mments Source [facility] ([id number])2023-09-25 07:10:32* Test Item Value Reference Range Interpretation Comme nts NA (test code = 6638067065) 139 mmol/L 135-145 K (test code = 1373110338) 4.0 mmol/L 3.5-5.0 CL (test code = 3912374333) 102 mmol/L 98-108 CO2 TOTAL (test code = 1635330535) 27 mmol/L 23-31 AGAP (test code = 1836493244) 10 2-16 BUN (test code = 9164539328) 24 mg/dL 7-23 H GLUCOSE (test code = 7987554810) 117 mg/dL 70-110 H CREATININE (test code = 2160-0) 0.89 mg/dL 0.60-1.25 TOTAL BILI (test code = 3280687127) 0.4 mg/dL 0.1-1.1 CALCIUM (test code = 5547515227) 9.7 mg/dL 8.6-10.6 T PROTEIN (test code = 3041273010) 7.7 g/dL 6.3-8.2 ALBUMIN (test code = 2895070778) 4.3 g/dL 3.5-5.0 ALK PHOS (test code = 9993721710) 61 U/L 34-122 ALTv (test code = 1742-6) 41 U/L 5-50 AST(SGOT) (test code = 4785468166) 27 U/L 13-40 eGFR (test code = 18166-2) 107.0 mL/min/1.73m2 CKD-EPI eGFR (2020). Assuming creatinine has been stable day-to-day for at least three months, the eGFR indicates Category G1 (>= 90 mL/min/1.73 m2) Lab Interpretation (test code = 07477-4) Abnormal [facility] 07:10:26* Test Item Value Reference Range Interpretation Comme nts LIPASE (test code = 9834385852) 169 U/L 0-220 Lab Interpretation (test cod e = 53364-1) Normal [facility]+ VW [id number] 14:59:33XR SHOULDER 2+ VW RIGHT HISTORY: ?right shoulder pain COMPARISON: 07/09/2021. Findings:Osseous structures are intact. Chronic right rib fractures. Mildacromioclavicular and glenohumeral osteoarthrosis.[facility] Notes Date/Time Note Provider Source 2023-12-30 12:37:26 Summary: Discharge Images from the original note were not included. Pt given printed and verbal discharge instructions regarding cornea abrasion, encouraged hydration, Prescriptions provided ketorolac 0.5 % ophthalmic solution ofloxacin 0.3 % ophthalmic solution Discussed ibuprofen and to take with food to avoid GI distress. Pt verbalized understanding of instructions, pt awake alert oriented, resp reg unlabored, skin w/d, color appropriate for race, moves all ext well,pt encouraged to follow up with pcp Advised to seek medical attention for new/prolonged/worsening of symptoms, Symptoms No adverse reaction to meds given in ER noted upon discharge Awake, alert oriented, resp reg unlabored, skin w/d, pt leaving amb with steady gait, in no apparent distress, Amanda Reinoso RN [facility] 2023-12-30 10:36:12 Patient reports waking up two days ago with left eye redness and since then increasing pain and itching/burning. He has tried flushing with no relief. Magdi Simeon RN [facility] 2023-12-30 10:24:00 Images from the original note were not included. [facility] Emergency Department Note Patient Name: Albino Pastor III Date of : 1975 48 year old male Treatment Room: [facility] Primary Care Physician: PATIENT DOES NOT HAVE A PCP Patient Escorted by: Self [9] Mode of Arrival: Personal means [1] EMS Treatment Prior to ED Arrival: AUDIO VISUAL TECH treatment: None Travel and Exposure Screening: Symptoms Does patient have any of these symptoms?: (not recorded) Exposure Screening Has patient had contact with someone with a communicable disease in the last month?: (not recorded) Diseases exposed to:: (not recorded) Is Patient ?: (not recorded) Exposure Date: (not recorded) Chief Complaint: Chief Complaint Patient presents with Eye Pain left History of Present Illness: Onset x two days with sense of foreign body to left eye. Metal grinding the day before. Does wear safety glasses for grinding. No corrective lens prescriptions. Left eye pain. (+) crusting on eyelids. No eyelid swelling. No known trauma. History provided by: Patient Past Medical History/Immunizations: Past Medical History: Diagnosis Date Diabetes mellitus Gout Hypertension AMANDA (obstructive sleep apnea) Tetanus received in last 5 years: Unknown Childhood immunizations: Up-to-date Allergies: Allergies Allergen Reactions Pcn [Penicillins] Hives Past Social History: Tobacco Use Every Day; 1.5 packs/day; Types: Cigarettes Past Surgical History: Past Surgical History: Procedure Laterality Date LAP,CHOLECYSTOENTEROSTOMY 09/2016 Review of Systems: Review of Systems Constitutional: Negative. HENT: Negative. Eyes: Positive for pain, discharge and redness. Respiratory: Negative. Cardiovascular: Negative. Gastrointestinal: Negative. Genitourinary: Negative. Musculoskeletal: Negative. Skin: Negative. Neurological: Negative. Psychiatric/Behavioral: Negative. Physical Exam: ED Triage Vitals [12/30/23 1036] Weight 95.3 kg (210 lb) Actual or estimated Height 1.803 m (5' 11") BP (!) 149/96 Pulse 100 Resp 20 Temp 37.1 ?C (98.8 ?F) Temp source Oral SpO2 97 % Measured on Room air Physical Exam Vitals and nursing note reviewed. Constitutional: General: He is not in acute distress. Appearance: Normal appearance. He is not ill-appearing, toxic-appearing or diaphoretic. HENT: Head: Normocephalic and atraumatic. Right Ear: External ear normal. Left Ear: External ear normal. Nose: Nose normal. Mouth/Throat: Mouth: Mucous membranes are moist. Eyes: General: Lids are normal. Lids are everted, no foreign bodies appreciated. Vision grossly intact. Left eye: No foreign body. Extraocular Movements: Extraocular movements intact. Conjunctiva/sclera: Right eye: Right conjunctiva is not injected. No chemosis, exudate or hemorrhage. Left eye: Left conjunctiva is injected. No chemosis, exudate or hemorrhage. Pupils: Left eye: Corneal abrasion and fluorescein uptake present. Funduscopic exam: Left eye: Left eye papilledema: Punctate corneal abrasion left medial region, no apparent retained foreign body. Neurological: Mental Status: He is alert. Radiology: No orders to display Lab Results: Lab Results - No data to display EKG: If EKG completed, see Procedure Note. Orders and Treatments: No orders of the defined types were placed in this encounter. No orders of the defined types were placed in this encounter. First Provider Eval: ED Events Date/Time Event User Comments 12/30/23 1054 Medical Screening Begins GOLDEN NEW MD -- 12/30/23 1109 First Provider Evaluation GOLDEN NEW MD -- ED COURSE Diagnosis/Impression as of 12/30/23 1211 Abrasion of left cornea, initial encounter Procedures: Procedures MDM: Medical Decision Making Primary impression: corneal abrasion, left eye Problems Addressed: Abrasion of left cornea, initial encounter: acute illness or injury Amount and/or Complexity of Data Reviewed Independent Historian: Details: self Labs: Details: N/a Radiology: Details: N/a Discussion of management or test interpretation with external provider(s): N/a Risk OTC drugs. Prescription drug management. Risk Details: Unremarkable OBS in ED. Findings and plan discussed with patient and spouse No findings that require acute hospitalization today. Ophthalmology clinic referral placed. Flowsheet Documentation: Scoring Tools: No data recorded Disposition/Condition: ED Disposition None Discharge Medications: Patient's Medications START taking these medications No medications on file CONTINUE taking these medications which have NOT CHANGED ALBUTEROL 90 MCG/ACTUATION INHALER Inhale 2 Puffs every 4 (four) hours as needed for Wheezing or Shortness of Breath. ATORVASTATIN 40 MG TABLET Take 1 tablet by mouth at bedtime. AZITHROMYCIN 250 MG TABLET Take 1 tablet by mouth daily. CLINDAMYCIN 300 MG CAPSULE Take 1 capsule by mouth 4 (four) times daily. CYCLOBENZAPRINE 5 MG TABLET Take 1 tablet by mouth every 8 (eight) hours as needed for Muscle Spasms. GLUCAGON 1 MG/ML SOLR INJECTION 1 mg by Intramuscular route as needed (blood glucose is LESS than 60 mg/dL and patient is unable to swallow or has mental status changes). HYDROCODONE-ACETAMINOPHEN 5-325 MG TABLET Take 1-2 tablets by mouth every 6 (six) hours as needed for Pain (scale 7-10). IBUPROFEN 600 MG TABLET Take 1 tablet by mouth every 6 (six) hours as needed for Pain (scale 4-6). IBUPROFEN 800 MG TABLET Take 1 tablet by mouth every 8 (eight) hours as needed for Pain (scale 4-6). IBUPROFEN 800 MG TABLET Take 1 tablet by mouth every 8 (eight) hours as needed for Pain (scale 4-6) (ALTERNATE WITH ULTRAM FOR PAIN). IBUPROFEN 800 MG TABLET Take 1 tablet by mouth every 8 (eight) hours as needed for Pain (scale 4-6). INSULIN GLARGINE 100 UNIT/ML INJECTION inject 26 Units under the skin at bedtime. INSULIN LISPRO, HUMAN, 100 UNIT/ML INJECTION inject 9 Units under the skin 3 (three) times daily before meals. METFORMIN 1,000 MG TABLET Take 1 tablet by mouth 2 (two) times daily with meals. METHOCARBAMOL 750 MG TABLET Take 1 tablet by mouth every 6 (six) hours as needed for Pain (scale 1-3). NICOTINE 21 MG/24 HR PATCH Apply 1 Patch to area(s) every 24 (twenty-four) hours. ONDANSETRON 4 MG DISINTEGRATING TABLET Take 1 tablet by mouth every 8 (eight) hours as needed for Nausea and Vomiting (N/V). TRAMADOL (ULTRAM) 50 MG TABLET Take 1 tablet by mouth every 8 (eight) hours as needed for Pain (scale 7-10). Indications: acute pain START taking Modified Medications as Prescribed No medications on file STOP taking these medications No medications on file Follow-up: [facility] PCP Electronically signed by: Golden New MD 12/30/23 1221 [facility] 2023-09-25 03:08:56 PT D/C home. GCS15, VS stable. Given D/C paperwork. Pt ambulatory at time of discharge. Pt educated on med usage, follow up care, s/s worsening condition, need for hydration. Pt verbalized understanding. Pt ambulated from ED in NAD T [facility] 2023-09-25 02:59:17 [facility] ED Transfer of Care Note. Off-going Physician:MAYITO boyd Time of Transfer of Care: 2:59 AM Summary: Albino Pastor III is a 47 year old male presenting with chief complaint of LLQ Pain. Pending prior to disposition: Imaging Current interventions: Medications NaCl 0.9% (NS) bolus infusion 1,000 mL (1,000 mL IV Infusion New Bag 09/25/23 0138) acetaminophen (TYLENOL) tablet 650 mg (650 mg Oral Given 09/25/23 0208) ketorolac (TORADOL) injection 15 mg (15 mg Slow IV Push Given 09/25/23 0208) iopamidol (ISOVUE 370-500 mL) injection 100 mL (100 mL Intravenous Given 09/25/23 0315) Results: Labs Reviewed COMP. METABOLIC PANEL (78504) - Abnormal; Notable for the following components: Result Value BUN 24 (*) GLUCOSE 117 (*) All other components within normal limits CBC WITH DIFF - Abnormal; Notable for the following components: WBC 11.95 (*) PLT 458 (*) MPV 9.5 (*) LYMPH x10 3 4.46 (*) All other components within normal limits LIPASE - Normal URINALYSIS - Normal CT ABDOMEN PELVIS W CONTRAST Preliminary Result 1. Colonic diverticulosis. No evidence of acute diverticulitis. 2. Small bilateral fat-containing inguinal hernias. Preliminary Report Dictated by Resident: Amber Aguillon Procedures: Procedures Additional Notes: Diagnosis/Impression as of 09/25/23 0300 LLQ pain Medical Decision Making Albino Pastor III is a 47 year old male who presents to the ED with LLQ Pain Problems Addressed: LLQ pain: Details: ED evaluation, laboratory and imaging study results as documented Amount and/or Complexity of Data Reviewed Labs: ordered. Decision-making details documented in ED Course. Radiology: ordered. Decision-making details documented in ED Course. Risk OTC drugs. Prescription drug management. Disposition: Discharged Home Social Determinants of Health: None ED Disposition ED Disposition Disch - Home Condition Stable Comment -- [facility] 2023-09-25 00:43:14 Pt presents with lower left frontal abd pain that began yesterday and has worsened over night. Pt denies any n/v/d. Pt had a BM earlier and states the pain got worse. No meds taken AUDIO VISUAL TECH. Patrizia Sanchez RN [facility] 2023-09-23 10:23:33 Patient dc home. Follow up with orthopedic surgeon. Verbalized understanding. Signed dc paper work. AN Manzano RN [facility] 2023-09-23 09:30:06 Pt arrived via private car with c/o right shoulder pain, states that "my shoulder goes in and out a lot, I can usually pop it back in but its been out for about 2 weeks now." Mga Corona RN [facility] 2023-09-23 09:26:00 [facility] Emergency Department Note Patient Name: Albino Pastor III Date of : 1975 47 year old male Treatment Room: [place] [address]/[id number] Primary Care Physician: PATIENT DOES NOT HAVE A PCP Patient Escorted by: Family [5] Mode of Arrival: Personal means [1] EMS Treatment Prior to ED Arrival: AUDIO VISUAL TECH treatment: None Travel and Exposure Screening: Symptoms Does patient have any of these symptoms?: (not recorded) Exposure Screening Has patient had contact with someone with a communicable disease in the last month?: (not recorded) Diseases exposed to:: (not recorded) Is Patient ?: (not recorded) Exposure Date: (not recorded) Chief Complaint: Chief Complaint Patient presents with Shoulder Pain right History of Present Illness: The patient presents from home for evaluation for right shoulder pain for the past 2 weeks. He reports that started when he got out of a big excavator. He is right-handed. He has used some Advil at home and reports is not helping. He reports he can actively move his shoulder to about 180 degrees with his body and then requires the use of his left hand to get his shoulder to go higher. No pain with movement of his neck. Here for evaluation. Past Medical History/Immunizations: Past Medical History: Diagnosis Date Diabetes mellitus Gout Hypertension AMANDA (obstructive sleep apnea) Tetanus received in last 5 years: Unknown Childhood immunizations: Up-to-date Allergies: Allergies Allergen Reactions Pcn [Penicillins] Hives Past Social History: Tobacco Use Every Day; 1.5 packs/day; Types: Cigarettes Past Surgical History: Past Surgical History: Procedure Laterality Date LAP,CHOLECYSTOENTEROSTOMY 09/2016 Review of Systems: Review of Systems Constitutional: Negative for chills and fever. Respiratory: Negative for cough and shortness of breath. Cardiovascular: Negative for chest pain. Gastrointestinal: Negative for abdominal pain. Genitourinary: Negative for dysuria. Musculoskeletal: Positive for arthralgias. Negative for neck pain and neck stiffness. Skin: Negative for wound. Neurological: Negative for dizziness. Psychiatric/Behavioral: Negative for agitation. Endocrine: Negative for goiter. Physical Exam: ED Triage Vitals [09/23/23 0932] Weight 96.5 kg (212 lb 11.2 oz) Actual or estimated Actual Height 1.803 m (5' 11") BP (!) 161/103 Pulse 101 Resp 18 Temp 36.5 ?C (97.7 ?F) Temp source Oral SpO2 97 % Measured on Room air Physical Exam Vitals and nursing note reviewed. Constitutional: Appearance: Normal appearance. HENT: Head: Normocephalic and atraumatic. Cardiovascular: Rate and Rhythm: Normal rate and regular rhythm. Pulses: Normal pulses. Pulmonary: Effort: Pulmonary effort is normal. No respiratory distress. Abdominal: General: There is no distension. Musculoskeletal: Cervical back: Neck supple. Comments: Decreased range of motion of the right shoulder due to pain. There is no deformity noted to the right shoulder. Full range of motion of the right wrist and right elbow. +2 radial pulse right side. He has tenderness to the trapezius muscle on the right side. Skin: General: Skin is warm and dry. Neurological: Mental Status: He is alert. Radiology: XR SHOULDER 2+ VW RIGHT Final Result XR SHOULDER 2+ VW RIGHT HISTORY: right shoulder pain COMPARISON: 07/09/2021. Findings: Osseous structures are intact. Chronic right rib fractures. Mild acromioclavicular and glenohumeral osteoarthrosis. IMPRESSION No radiographic evidence of acute fracture or dislocation. Lab Results: Lab Results - No data to display EKG: If EKG completed, see Procedure Note. Orders and Treatments: Orders Placed This Encounter Procedures XR SHOULDER 2+ VW RIGHT Orders Placed This Encounter Medications diazePAM (VALIUM) tablet 5 mg methocarbamoL 750 mg tablet First Provider Eval: ED Events Date/Time Event User Comments 09/23/23927 Medical Screening Begins GISELA GUDINO DO -- 09/23/23927 First Provider Evaluation GISELA GUDINO DO -- ED COURSE Diagnosis/Impression as of 09/23/23 1011 Acute pain of right shoulder Procedures: Procedures MDM: Medical Decision Making The patient presents from home for evaluation for right shoulder pain for the past 2 weeks since he got out of a really big excavator. He is right-handed. He has used some Advil at home and reports it is not really helping. He reports the pain is worse with trying to move his shoulder and is better when it is still. Vital signs are stable in the ER. He has decreased range of motion of the right shoulder due to pain. No deformity is noted to the right shoulder. He has tenderness noted to the trapezius muscle on the right side. +2 radial pulse right side. He has full range of motion of his right wrist and elbow. Low concern for fracture based on his presentation. However we will obtain x-ray and give the patient pain medication here in the ER. Anticipate discharge home later. 1011 -the patient is doing well here in the ER. X-ray of the right shoulder shows no acute osseous injuries. He may benefit from an outpatient MRI to evaluate for possible rotator cuff injury. He remained stable here in the ER and is okay for discharge home with PCP follow-up. Problems Addressed: Acute pain of right shoulder: acute illness or injury Amount and/or Complexity of Data Reviewed Radiology: ordered and independent interpretation performed. Decision-making details documented in ED Course. Risk OTC drugs. Prescription drug management. Flowsheet Documentation: Scoring Tools: No data recorded Disposition/Condition: ED Disposition ED Disposition Disch - Home Condition Stable Comment -- Discharge Medications: Patient's Medications START taking these medications METHOCARBAMOL 750 MG TABLET Take 1 tablet by mouth every 6 (six) hours as needed for Pain (scale 1-3). CONTINUE taking these medications which have NOT CHANGED ALBUTEROL 90 MCG/ACTUATION INHALER Inhale 2 Puffs every 4 (four) hours as needed for Wheezing or Shortness of Breath. ATORVASTATIN 40 MG TABLET Take 1 tablet by mouth at bedtime. AZITHROMYCIN 250 MG TABLET Take 1 tablet by mouth daily. CLINDAMYCIN 300 MG CAPSULE Take 1 capsule by mouth 4 (four) times daily. CYCLOBENZAPRINE 5 MG TABLET Take 1 tablet by mouth every 8 (eight) hours as needed for Muscle Spasms. GLUCAGON 1 MG/ML SOLR INJECTION 1 mg by Intramuscular route as needed (blood glucose is LESS than 60 mg/dL and patient is unable to swallow or has mental status changes). HYDROCODONE-ACETAMINOPHEN 5-325 MG TABLET Take 1-2 tablets by mouth every 6 (six) hours as needed for Pain (scale 7-10). IBUPROFEN 600 MG TABLET Take 1 tablet by mouth every 6 (six) hours as needed for Pain (scale 4-6). IBUPROFEN 800 MG TABLET Take 1 tablet by mouth every 8 (eight) hours as needed for Pain (scale 4-6). IBUPROFEN 800 MG TABLET Take 1 tablet by mouth every 8 (eight) hours as needed for Pain (scale 4-6) (ALTERNATE WITH ULTRAM FOR PAIN). INSULIN GLARGINE 100 UNIT/ML INJECTION inject 26 Units under the skin at bedtime. INSULIN LISPRO, HUMAN, 100 UNIT/ML INJECTION inject 9 Units under the skin 3 (three) times daily before meals. METFORMIN 1,000 MG TABLET Take 1 tablet by mouth 2 (two) times daily with meals. NICOTINE 21 MG/24 HR PATCH Apply 1 Patch to area(s) every 24 (twenty-four) hours. ONDANSETRON 4 MG DISINTEGRATING TABLET Take 1 tablet by mouth every 8 (eight) hours as needed for Nausea and Vomiting (N/V). TRAMADOL (ULTRAM) 50 MG TABLET Take 1 tablet by mouth every 8 (eight) hours as needed for Pain (scale 7-10). Indications: acute pain START taking Modified Medications as Prescribed No medications on file STOP taking these medications No medications on file Follow-up: Contact information for follow-up Pcp, Patient Does Not Have A Relationship: PCP - General [address] [place] [id number] Electronically signed by: Gisela Gudino DO 09/23/23 1011 T [facility]
[2024-09-07] MEDS ORDERED: KETOROLAC 30 MG/ML INJ ONE (17:32)
[2024-09-07] MEDS ORDERED: DIPHENHYDRAMINE 25 MG TAB/CAP ONE (17:32)
[2024-09-07] MEDS ORDERED: METOCLOPRAMIDE 10 MG/2mL INJ ONE (17:32)
--- NOTE | 2024-09-07 18:06 | RAD REPORT ---
EXAM: CT brain without contrast HISTORY: Headache COMPARISON: None TECHNIQUE: Multiple contiguous axial images were obtained and a CT of the brain without contrast.. Sagittal and coronal reconstruction performed. Automated exposure control, adjustment of the mA and/or kV according to patient size, and/or iterative reconstruction. Unless otherwise specified, incidental f indings do not require dedicated imaging follow-up FINDINGS: An intracranial bleed is not seen Ventricles are normal caliber No extra-axial fluid collection noted No significant hypodensity within the brain No fluid within the visualized sinuses or mastoids noted. IMPRESSION: No acute intracranial abnormality noted. If the patient continues to have symptoms to suggest an acute intracranial abnormality then MRI of th e brain would be recommended.
--- NOTE | 2024-09-07 18:21 | ER ---
Nurse's Notes [facility] Name: Christiano Johns III Age: 48 yrs Sex: Male : 1975 Arrival Date: 09/07/2024 Time: 16:04 Bed 7 Private MD: Diagnosis: Migraine without aura, not intractable Presentation: 09/07 16:23 Chief complaint: Patient states: RIVERA x 1 week. Coronavirus screen: At this time, the jl7 client does not indicate any symptoms associated with coronavirus-19. Ebola Screen: No symptoms or risks identified at this time. Initial Sepsis Screen: Does the patient meet any 2 criteria? No. Patient's initial sepsis screen is negative. Does the patient have a suspected source of infection? No. Patient's initial sepsis screen is negative. Risk Assessment: Do you want to hurt yourself or someone else? Patient reports no desire to harm self or others. Onset of symptoms was August 31, 2024. 16:23 Method Of Arrival: Ambulatory [facility] 16:23 Acuity: TRAVIS 3 jl7 Triage Assessment: 16:25 Headache History: Denies prior headaches. General: Appears in no apparent distress. jl7 uncomfortable, Behavior is cooperative, anxious, restless. Pain: Complains of pain in right caodaism, right frontal area and right temporal area Pain currently is 10 out of 10 on a pain scale. Pain began x 1 week Also complains of no other associated symptoms. Neuro: Level of Consciousness is awake, alert, obeys commands, Oriented to person, place, time, situation. Historical: - Allergies: 16:25 PENICILLINS; jl7 - Home Meds: 16:25 None [Active]; jl7 - PMHx: 16:25 Diabetes - NIDDM; GALLSTONES; Sleep Apnea; Gout; jl7 - PSHx: 16:25 Cholecystectomy; jl7 - Immunization history:: Adult Immunizations unknown. - Infectious Disease History:: Denies. - Social history:: Smoking status: Patient reports the use of cigarette tobacco products, smokes one pack cigarettes per day. Screenin:00 [facility] ED Fall Risk Assessment (Adult) History of falling in the last 3 months, aa5 including since admission No falls in past 3 months (0 pts) Confusion or Disorientation No (0 pts) Intoxicated or Sedated No (0 pts) Impaired Gait No (0 pts) Mobility Assist Device Used No (0 pt) Altered Elimination No (0 pt) Score/Fall Risk Level 0 - 2 = Low Risk Oriented to surroundings, Maintained a safe environment, Educated pt \T\ family on fall prevention, incl call for assistance when getting out of bed, Assessed \T\ reinforced patient's understanding of fall precautions. Abuse screen: Denies threats or abuse. Nutritional screening: No deficits noted. Tuberculosis screening: No symptoms or risk factors identified. Assessment: 17:00 General: Appears uncomfortable, Behavior is calm, cooperative. Pain: Complains of pain aa5 in right occipital area and right base of the skull Pain currently is 9 out of 10 on a pain scale. Quality of pain is described as aching. 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 Gait is steady, Speech is normal, Facial symmetry appears normal, Reports headache Report diplopia to right eye intermittently x 3-4 days ago. Cardiovascular: Patient's skin is warm and dry. Respiratory: Airway is patent Respiratory effort is even, unlabored, Respiratory pattern is regular, symmetrical. GI: Abdomen is round. : No signs and/or symptoms were reported regarding the genitourinary system. EENT: No signs and/or symptoms were reported regarding the EENT system. Derm: Skin is pink, warm \T\ dry. Musculoskeletal: Range of motion: intact in all extremities. Vital Signs: 16:23 BP 163 / 106; Pulse 77; Resp 17; Temp 97; Pulse Ox 94% ; Weight 102.06 kg; Height 5 ft. jl7 11 in. ; Pain 10/10; 17:39 BP 143 / 97; Pulse 74; Resp 20 S; Pulse Ox 93% on R/A; aa5 18:36 BP 137 / 92; Pulse 82; Resp 17; Pulse Ox 92% ; cm10 16:23 Body Mass Index 31.38 (102.06 kg, 180.34 cm) jl7 16:23 Pain Scale: Adult jl7 ED Course: 16:07 Patient arrived in ED. im 16:14 Lori Tan MD is Attending Physician. gb1 16:25 Triage completed. jl7 16:25 Arm band placed on right wrist. jl7 16:38 Castle, Maria Luisa, RN is Primary Nurse. aa5 17:00 Patient has correct armband on for positive identification. Bed in low position. Call aa5 light in reach. Side rails up X 1. Pulse ox on. NIBP on. 17:30 Inserted saline lock: 20 gauge in right upper arm, using aseptic technique. Flushed aa5 with 10 mL NS. 17:49 No provider procedures requiring assistance completed. aa5 17:59 CT Head Brain wo Cont In Process Unspecified. EDMS 18:36 Provided Education on: Follow-up instructions. cm10 18:36 IV discontinued, intact, bleeding controlled, No redness/swelling at site. Pressure cm10 dressing applied. Administered Medications: 17:38 Drug: Ketorolac IVP 30 mg IVP once Route: IVP; Site: right upper arm; aa5 17:49 Follow up: Response: No adverse reaction aa5 17:38 Not Given (not available per pharmacy, MD was notified. ): [id number] mg IVP aa5 once 17:38 Not Given (Physician Discretion): [id number] mg PO once aa5 17:38 Drug: metoCLOPramide IVP 10 mg IVP once; over 1 to 2 minutes Route: IVP; Site: right aa5 upper arm; 17:49 Follow up: Response: No adverse reaction aa5 Medication: 17:49 VIS not applicable for this client. aa5 Outcome: 18:21 Discharge ordered by . gb1 18:36 Discharged to home ambulatory, with significant other, cm10 18:36 Condition: good 18:36 Discharge instructions given to patient, Instructed on discharge instructions, follow up and referral plans. medication usage, Demonstrated understanding of instructions, follow-up care, medications, Prescriptions given X 1, 18:39 Patient left the ED. cm10 Signatures: Dispatcher [employer] EDID Maria Luisa Castle, RN RN aa5 Evelia Zhang RN RN jl7 Sangeeta Gilman Clarissa, RN RN cm10 Lori Tan MD MD gb1
--- NOTE | 2024-09-07 18:22 | EDPHYS ---
Physician Documentation [facility] Name: Christiano Johns III Age: 48 yrs Sex: Male : 1975 Arrival Date: 09/07/2024 Time: 16:04 Bed 7 Private MD: ED Physician Lori Tan HPI: 09/07 17:56 This 48 yrs old Male presents to ER via Ambulatory with complaints of gb1 Headache. 17:56 48-year-old male does have a headache on the right side for a week. The headache is not gb1 woken him up from sleep but he does have blurred vision in the right eye. He is a very heavy smoker 1 to 2 packs of cigarettes per day. He has a history of diabetes [id number]-[id number], gallstones, sleep apnea and gout. Patient traveled to [place] for his 's birthday and felt the headache at the worst that had been. He denies any fever but does have right-sided back head/neck pain and it hurts when he coughs on that right side. Patient is been taking Excedrin without any relief.. Historical: - Allergies: 16:25 PENICILLINS; jl7 - Home Meds: 16:25 None [Active]; jl7 - PMHx: 16:25 Diabetes - NIDDM; GALLSTONES; Sleep Apnea; Gout; jl7 - PSHx: 16:25 Cholecystectomy; jl7 - Immunization history:: Adult Immunizations unknown. - Infectious Disease History:: Denies. - Social history:: Smoking status: Patient reports the use of cigarette tobacco products, smokes one pack cigarettes per day. Exam: 17:56 Constitutional: This is a well developed, well nourished patient who is awake, alert, gb1 and in no acute distress. Head/Face: Normocephalic, atraumatic. Eyes: Pupils equal round and reactive to light, extra-ocular motions intact. Lids and lashes normal. Conjunctiva and sclera are non-icteric and not injected. Cornea within normal limits. Periorbital areas with no swelling, redness, or edema. ENT: Nares patent. No nasal discharge, no septal abnormalities noted. Tympanic membranes are normal and external auditory canals are clear. Oropharynx with no redness, swelling, or masses, exudates, or evidence of obstruction, uvula midline. Mucous membranes moist. Neck: Trachea midline, no thyromegaly or masses palpated, and no cervical lymphadenopathy. Supple, full range of motion without nuchal rigidity, or vertebral point tenderness. No Meningismus. Chest/axilla: Normal chest wall appearance and motion. Nontender with no deformity. No lesions are appreciated. Cardiovascular: Regular rate and rhythm with a normal S1 and S2. No gallops, murmurs, or rubs. Normal PMI, no JVD. No pulse deficits. Respiratory: Lungs have equal breath sounds bilaterally, clear to auscultation and percussion. No rales, rhonchi or wheezes noted. No increased work of breathing, no retractions or nasal flaring. Abdomen/GI: Soft, non-tender, with normal bowel sounds. No distension or tympany. No guarding or rebound. No evidence of tenderness throughout. Back: No spinal tenderness. No costovertebral tenderness. Full range of motion. Skin: Warm, dry with normal turgor. Normal color with no rashes, no lesions, and no evidence of cellulitis. MS/ Extremity: Pulses equal, no cyanosis. Neurovascular intact. Full, normal range of motion. Neuro: Awake and alert, GCS 15, oriented to person, place, time, and situation. Cranial nerves II-XII grossly intact. Motor strength 5/5 in all extremities. Sensory grossly intact. Cerebellar exam normal. Normal gait. Vital Signs: 16:23 BP 163 / 106; Pulse 77; Resp 17; Temp 97; Pulse Ox 94% ; Weight 102.06 kg; Height 5 ft. jl7 11 in. ; Pain 10/10; 17:39 BP 143 / 97; Pulse 74; Resp 20 S; Pulse Ox 93% on R/A; aa5 18:36 BP 137 / 92; Pulse 82; Resp 17; Pulse Ox 92% ; cm10 16:23 Body Mass Index 31.38 (102.06 kg, 180.34 cm) jl7 16:23 Pain Scale: Adult jl7 MDM: 16:18 Medical Screening Exam initiated gb1 18:22 Data reviewed: vital signs, nurses notes. ED course: 48-year-old male with headache not gb1 first, worst, sudden or maximal in onset. Patient did have vision changes in the right eye but they seen on focal and not lateralizing. Patient denies any neck pain or fever I doubt acute meningitis no falls or trauma I doubt subarachnoid hemorrhage from subdural hematoma. Patient CT scan shows no acute injury or cranial findings. Recommend fluid hydration and Imitrex for chronic migraine headaches. Be discharged home with outpatient routine follow-up and he is compliant with plan of care as set forth.. 09/07 17:27 Order name: CT Head Brain wo Cont; Complete Time: 18:16 gb1 Administered Medications: 17:38 Drug: Ketorolac IVP 30 mg IVP once Route: IVP; Site: right upper arm; aa5 17:49 Follow up: Response: No adverse reaction aa5 17:38 Not Given (not available per pharmacy, MD was notified. ): [id number] mg IVP aa5 once 17:38 Not Given (Physician Discretion): [id number] mg PO once aa5 17:38 Drug: metoCLOPramide IVP 10 mg IVP once; over 1 to 2 minutes Route: IVP; Site: right aa5 upper arm; 17:49 Follow up: Response: No adverse reaction aa5 Disposition Summary: 09/07/24 18:21 Discharge Ordered Notes: Location: Home gb1 Problem: an acute exacerbation gb1 Symptoms: have improved gb1 Condition: Stable gb1 Diagnosis - Migraine without aura, not intractable gb1 Followup: gb1 - With: Private Physician - When: - Reason: If symptoms return, Recheck today's complaints Discharge Instructions: - Discharge Summary Sheet gb1 - Chronic Migraine Headache, [id number] gb1 Forms: - Medication Reconciliation Form gb1 - Antibiotic Education gb1 - Prescription Opioid Use gb1 - Patient Portal Instructions gb1 - Leadership Thank You Letter gb1 Prescriptions: - Imitrex 25 mg Oral Tablet - take 1 tablet ORAL route one time - x 1 dose with fluids as early as possible gb1 after the onset of a migraine attack; if headache returns, the dose may be repeated after 2 hours, not to exceed a total daily dose of 8 tablets; 9 tablet; Refills: 0, Product Selection Permitted Signatures: Dispatcher [employer] EDMaria Luisa Heard RN RN aa5 Evelia Zhang RN RN jl7 Lori Tan MD MD gb1
[2024-09-07 19:08] VITALS: TEMP 97
[2024-09-07 19:11] VITALS: BP 137/92; O2SAT 92
== END 2024-09-07 18:39 | disposition home or self-care (01) ==
LOC: ER 16:04
DX: G43.009 Migraine without aura, not intractable, without status migrainosus (principal); E11.9 Type 2 diabetes mellitus without complications; F17.210 Nicotine dependence, cigarettes, uncomplicated
CPT/HCPCS: 70450; 96375; 96374; 99284; J2765